=== PATIENT | female | born 1960 | race Caucasian/White ===

== ENCOUNTER 2019-08-14 00:47 | Day surgery (SDC) | payer OTHER, SELFPAY ==
[2019-08-11 14:44] VITALS: BMI 28.5
[2019-08-14] VITALS (9 sets, daily range): BP systolic 111–148; BP diastolic 64–86; PULSE 63–86; RESP 12–16; TEMP 36.1; O2SAT 94–100
[2019-08-14] MEDS: LACTATED RINGERS 1,000 ML 30 ML IV CONT (08:15)
--- NOTE | 2019-08-14 08:33 | WPDANESEPPF ---
Anes - Initial Pre Proc Eval Procedure: Operation Date: 08/14/19 10:00 Proposed Procedures p Trans Urethral Resection Bladder Tumor with Mitomycin C Instillation - Shady Ruiz MD Date/Time: 08/14/19 08:33 Surgeon: Shady Ruiz MD Pre Op Diagnosis: malignant neoplasm of bladder Patient Data Age: 59 Gender: F Height: 5 ft 3 in Weight: 71.1 kg Allergies Allergy/AdvReac Type Severity Reaction Status Date / Time No Known Allergies Allergy Unverified 08/14/19 08:00 Home Medications Medication Instructions Recorded Confirmed Type No Home Medications 08/11/19 08/14/19 History Patient hx anesthesia problems: none Family hx anesthesia problems: none [facility] Past Medical History Medical History Bladder cancer Anes - Eval Final PreProcedure Day of Procedure 08/14/19 08:33 Patient weight: overweight Heart: regular rate and rhythm Lungs: clear to auscultation Airway: Mallampati scale class II Neurological: alert and oriented Last oral intake: >/= 8 hours ASA classification: III Emergent: no Anesthetic plan: proceed Anesthesia type and monitoring: general LMA and standard monitoring Informed Consent: The patient's anesthetic plan and its attendant risks and benefits were discussed with the patient/family/POA. Questions were solicited and answers provided to the satisfaction of the patient/family/POA.
--- NOTE | 2019-08-14 09:39 | WPDHPUPDATE1 ---
History and Physical Update Update Date/Time: 08/14/19 09:39 History and Physical has been reviewed, including an updated exam of the patient. There are NO changes in the patient's condition. Risks, benefits, and alternatives have been discussed and questions answered. Patient agrees to proceed with procedure.
--- NOTE | 2019-08-14 09:40 | WPDHPUPDATE1 ---
History and Physical Update Update Date/Time: 08/14/19 09:40 History and Physical has been reviewed, including an updated exam of the patient. There are NO changes in the patient's condition. Risks, benefits, and alternatives have been discussed and questions answered. Patient agrees to proceed with procedure.
[2019-08-14] MEDS: ceFAZolin 2 GM/D5W 50 ML 2 GM/50 ML BAG IVPB (10:01)
--- NOTE | 2019-08-14 10:20 | PM.PROC ---
Procedure Note - Detailed Date of procedure: 08/14/19 Pre-op diagnosis: malignant neoplasm of bladder Post-op diagnosis: same Procedure performed: TURBT (medium, 4cm) Description of procedure: The patient was brought to the operative suite where she is prepped and draped in a routine sterile fashion while in the dorsal lithotomy position. This is done after the uneventful administration of systemic sedation. 2% Xylocaine jelly is introduced intraurethrally and allowed to stand for an appropriate period of time. A 24F resectoscope sheath was placed in the bladder and the bladder is circumferentially inspected carefully. 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 This area is resected in its entirety with an attempt made to include detrusor muscle for pathological evaluation of invasion. The base and periphery of this resected side is cauterized with a loop electrode. The bladder is emptied and the resectoscope was removed. The patient is taken to the recovery room having tolerated this procedure well. Anesthesia: GLMA Surgeon: Shady Ruiz MD Estimated blood loss (mL): 0 Drains: No Packing: No Pathology: yes Complications: No immediate complications Condition: stable Disposition: PACU
--- NOTE | 2019-08-14 10:21 | PM.PROC ---
Procedure Note - Detailed Date of procedure: 08/14/19 Pre-op diagnosis: malignant neoplasm of bladder Post-op diagnosis: same Procedure performed: Mitomycin instillation Description of procedure: With the patient in the supine position, a 16F West catheter is placed using sterile technique. Using a protective facemask, gown and double layer of gloves Mitomycin 40mg in 100cc saline is administered through the catheter/into the bladder. The catheter is then plugged. Patient was instructed to lie supine x20min, then to roll both the left and right x20 min. each. Total dwell time will be 60 min., after which the bladder will be drained and catheter removed. Anesthesia: none Surgeon: Shady Ruiz MD Estimated blood loss (mL): 0 Drains: No Packing: No Pathology: none sent Complications: No immediate complications Condition: stable Disposition: PACU
--- NOTE | 2019-08-14 10:53 | SUR.PHASEI ---
1053 - pt's family called and updated
--- NOTE | 2019-08-14 12:03 | SUR.PHASEI ---
1047 - pt turned every 20 minutes x 3. pt bora well. bladder drained and 150mls instilled. collier removed.
== END 2019-08-14 12:50 | disposition home or self-care (01) ==
PROVIDERS: PCP Internal Medicine; Visit Provider Urology
PROC: 0TBB8ZZ Excision of Bladder, Via Natural or Artificial Opening Endoscopic (ICD-10-PCS; CPT 51720; principal; 2019-08-14 10:00)
DX: C67.4 Malignant neoplasm of posterior wall of bladder (principal)
CPT/HCPCS: 51720; 52235; 88305; 88307; A9270; J0690; J1100; J2250; J2405; J2704; J3010; J7120; J9280

== ENCOUNTER 2020-01-29 14:54 | Outpatient (CLI) | payer BC, SELFPAY ==
--- NOTE | ~2020-01-29 | MM_ITS ---
EXAMINATION: MM screening velasquez BI w neymar HISTORY: Screening TECHNIQUE: Craniocaudal and mediolateral oblique 3-D tomosynthesis images were obtained and synthetic 2-D images were generated. CAD analysis was submitted and interpreted. COMPARISON: Comparison to multiple prior studies sequentially, with oldest reviewed study dated 08/30. BREAST PARENCHYMAL COMPOSITION: There are scattered areas of fibroglandular density. FINDINGS: There is no evidence of suspicious mass, calcification, or architectural distortion to sugg est malignancy in either breast. There has been no suspicious interval change. IMPRESSION: 1. No mammographic evidence of malignancy. 2. Recommend routine screening mammography in one year. BI-RADS Category 1: Negative Reviewed, dictated and finalized at location A.
== END 2020-01-29 14:55 | disposition home or self-care (01) ==
LOC: CHSIMG 14:56
PROVIDERS: PCP Internal Medicine; Visit Provider Internal Medicine
DX: Z12.31 Encounter for screening mammogram for malignant neoplasm of breast (principal)
CPT/HCPCS: 77063; 77067

== ENCOUNTER 2020-10-23 19:18 | Emergency (ER) | payer BC, SELFPAY ==
--- NOTE | ~2020-10-23 | CT_ITS ---
EXAMINATION: CT abdomen pelvis wo con EXAM DATE: 10/23/2020 19:55 INDICATION: Right flank pain for couple of weeks. Bladder tumors. TECHNIQUE: Spiral CT of the abdomen and pelvis was performed without contrast. Axial, coronal and sag ittal images were reviewed. The dose-length product (DLP) for this examination was 321.49 mGy-cm. T he exposure was tailored according to patient size (auto mA exposure control), and iterative reconstr uction (ASIR) was used as additional dose reduction technique. Comparison is made to prior examinatio n from 09/09/2015. FINDINGS: There are surgical changes of the bladder. There is severe right-sided hydroureteronephrosi s, probably indicating chronic low-grade obstruction. Left kidney unremarkable. The bladder is unrema rkable. Status post hysterectomy. The liver, spleen, adrenal glands and pancreas are unremarkable. G allbladder is unremarkable. No biliary obstruction. There is no retroperitoneal or pelvic lymphaden opathy. There is mild scattered arteriosclerotic disease. The appendix is not positively visualized. There is no pericecal inflammatory change to suggest appe ndicitis. There is mild sigmoid colonic diverticulosis. There is no adjacent inflammatory change to suggest diverticulitis. The stomach and small bowel are unremarkable. There is expected amount of colonic stool. No free intraperitoneal gas. The heart is normal in size. There are no pericardi al or pleural effusions. The lung bases are unremarkable. Chronic bilateral L5 spondylolysis with o nly a few millimeters anterolisthesis. IMPRESSION: 1. Severe right-sided hydroureteronephrosis to the UVJ, probably chronic. Bladder postoperative richter ges. No obstructing stones. 2. Mild sigmoid diverticulosis. Reviewed, dictated and finalized at location G. IMPRESSION: 1. Severe right-sided hydroureteronephrosis to the UVJ, probably chronic. Blad angelica postoperative changes. No obstructing stones. 2. Mild sigmoid diverticulosis.
[2020-10-23 19:25] VITALS: BP 143/83; PULSE 103; RESP 18; TEMP 36.8; O2SAT 98
[2020-10-23 19:51] LABS: Add Urine Microscopic? YES; Appearance Urine Clear (Clear); Bilirubin Urine Negative (Negative); Blood Urine 2+ (Negative); Color Urine Light Yellow (Yellow); Glucose Urine UA Negative (Negative); Ketones Urine 1+ (Negative); Leukocyte Esterase Ur Trace (Negative); Nitrate Urine Negative (Negative); Protein Urine Negative (Negative); Specific Grav Ur 1.025 (1.010-1.020); Urobilinogen Urine 0.2 mg/dL (0.2-1.0); pH Urine 5.5 (5.0-8.0)
[2020-10-23 20:06] LABS: Basophils Absolute Auto 0.04 K/mm3 (0.00-0.10); Basophils Percent Auto 0.3 % (0.0-1.0); Eosinophils Absolute Auto 0.09 K/mm3 (0.02-0.50); Eosinophils Percent Auto 0.7 % (1.0-6.0); Hematocrit 43.2 % (35.0-49.0); Hemoglobin 14.4 g/dL (12.0-15.0); Immature Granulocyte Absolute 0.11 K/mm3 (0.00-0.00); Immature Granulocyte Percent A 0.8 % (0.0-0.0); Lymphocytes Percent Auto 5.4 % (18.0-42.0); Mean Corpuscular HGB Conc 33.3 g/dL (32.0-36.0); Mean Corpuscular Hemoglobin 30.8 pg (27.0-31.0); Mean Corpuscular Volume 92.5 fL (78.0-102.0); Mean Platelet Volume 9.6 fl (9.2-11.8); Monocytes Absolute Auto 0.32 K/mm3 (0.10-0.90); Monocytes Percent Auto 2.5 % (2.0-11.0); Neutrophils Absolute Auto 11.8 K/mm3 (1.7-7.2); Neutrophils Percent Auto 90.3 % (50.0-70.0); Platelet Count Result 290 K/mm3 (150-420); Red Blood Count 4.67 M/mm3 (4.20-5.40); Red Cell Distribution Width 12.1 % (11.6-14.4)
[2020-10-23 20:09] LABS: Bacteria Urine None seen /hpf; Squamous Epithelial Cell Urine Few /hpf (Few); WBC Urine 0-3 /hpf (0-3)
[2020-10-23 20:27] LABS: Lactic Acid Reflex 1.2 mmol/L (0.4-2.0)
[2020-10-23 20:33] LABS: Alanine Aminotransferase 25 U/L (14-59); Albumin Level 3.4 g/dL (3.4-5.0); Alkaline Phosphatase 137 U/L (46-116); Anion Gap 10 mmol/L (8-16); Aspartate Amino Transferase 18 U/L (15-37); Bilirubin,Total 0.9 mg/dL (0.00-1.00); Blood Urea Nitrogen 20 mg/dL (7-18); Calcium 9.3 mg/dL (8.5-10.1); Carbon Dioxide 27 mmol/L (21-32); Chloride 103 mmol/L (98-108); Estimated CRCL calculation 61 ml/min; Estimated Glomerular Filt Rate > 60; Glucose 105 mg/dL (70-99); Osmolality Calculated 292 mOsm/kg (285-295); Potassium 3.9 mmol/L (3.5-5.1); Sodium 140 mmol/L (136-145); Total Protein 7.4 g/dL (6.4-8.2)
--- NOTE | 2020-10-23 20:38 | ED.FEMALEGU ---
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 MD elicited complaint: dysuria Pertinent past history: other ( history of bladder cancer) Onset (ago): day(s) Severity: mild Female Urogenital Radiation: Suprapubic Severity scale (1-10): 4 Quality of pain: dull Consistency: constant Vaginal discharge: none Vaginal bleeding: none Urinary symptoms: Dysuria Exacerbating factors: none Relieving factors: none Associated symptoms: chills Related Data Allergies Allergy/AdvReac Type Severity Reaction Status Date / Time No Known Allergies Allergy Unverified 08/14/19 08:00 Review of Systems Review of Systems: All systems reviewed & are unremarkable except as noted in HPI and below [facility] Past Medical History Medical History (Updated 10/23/20 @ 20:43 by Abhi Ro MD) Bladder cancer Exam Const: General: no acute distress Orientation/consciousness: patient oriented x3 HENMT: Head: normal to inspection Eyes: Conjunctivae: conjunctivae normal Pupils: Equal, round and reactive pupils present EOM: EOMs intact bilaterally Neck: Neck: normal visual inspection, no lymphadenopathy and no meningeal signs Chest: Chest palpation & inspection: normal inspection of the chest Resp: Effort & Inspection: normal respiratory effort Auscultation: clear to auscultation bilaterally Cardio: Rate: regular rate Rhythm: regular rhythm GI: GI Palp: Yes Soft to palpation Percussion: Yes normal to percussion : General: Yes no CVA tenderness Other: Suprapubic tender Urinary Catheter: Urinary Catheter: patent and draining Back/Spine/Pelvis: Back: no CVA tenderness Skin: General skin exam: normal color Rashes: no rashes Neuro: General: patient oriented x3, moves all extremities and no meningeal signs Extrem: General: normal to inspection Psych: Mental Status: mental status grossly normal Affect: normal affect Attitude: cooperative Course Course Emergency Course: patient resting comfortably reassessment of pain she declined any pain medicine, but will start ceftriaxone 1 g IM and will send antibiotics to her pharmacy and advised follow-up with urologist as soon as possible. Vital Signs Vital signs: Vital Signs Temperature 36.8 C 10/23/20 19:25 Pulse Rate 103 H 10/23/20 19:25 Respiratory Rate 18 10/23/20 19:25 Blood Pressure 143/83 H 10/23/20 19:25 Pulse Oximetry 98 10/23/20 19:25 Temperature 36.8 C 10/23/20 19:25 Pulse Rate 103 H 10/23/20 19:25 Respiratory Rate 18 10/23/20 19:25 Blood Pressure 143/83 H 10/23/20 19:25 Pulse Oximetry 98 10/23/20 19:25 MDM - Female Genitourinary Lab Data Result diagrams: 10/23/20 20:00 10/23/20 20:00 Labs: Lab Results 10/23/20 10/23/20 10/23/20 Range/Units 19:33 20:00 20:00 WBC 13.0 H (4.8-10.8) K/mm3 RBC 4.67 (4.20-5.40) M/mm3 Hgb 14.4 (12.0-15.0) g/dL Hct 43.2 (35.0-49.0) % MCV 92.5 (78.0-102.0) fL MCH 30.8 (27.0-31.0) pg MCHC 33.3 (32.0-36.0) g/dL RDW 12.1 (11.6-14.4) % Plt Count 290 (150-420) K/mm3 MPV 9.6 (9.2-11.8) fl Immature Gran % (Auto) 0.8 H (0.0-0.0) % Neut % (Auto) 90.3 H (50.0-70.0) % Lymph % (Auto) 5.4 L (18.0-42.0) % Person % (Auto) 2.5 (2.0-11.0) % Eos % (Auto) 0.7 L (1.0-6.0) % Baso % (Auto) 0.3 (0.0-1.0) % Lymph # (Auto) 0.70 L (1.10-4.50) K/mm3 Person # (Auto) 0.32 (0.10-0.90) K/mm3 Eos # (Auto)
[2020-10-23 20:42] VITALS: BP 143/83; PULSE 97; RESP 20; TEMP 37.1; O2SAT 97
[2020-10-23] MEDS: cefTRIAXone 1 GM VIAL IM (20:42)
== END 2020-10-23 21:05 | disposition home or self-care (01) ==
PROVIDERS: Emergency Provider Emergency Medicine; PCP Internal Medicine
DX: N30.00 Acute cystitis without hematuria (principal)
CPT/HCPCS: 36415; 74176; 80053; 81001; 83605; 85025; 96372; 99283; 99284; J0696

== ENCOUNTER 2020-11-04 01:14 | Day surgery (SDC) | payer BC, SELFPAY ==
[2020-10-29 14:27] VITALS: BMI 27.6
--- NOTE | 2020-11-01 08:38 | P.HP_ITS ---
History of Present Illness History of Present Illness Consent: Risks, benefits, and alternatives have been discussed and questions answered. Patient agrees to proceed with procedure. Chief complaint: bladder tumors Narrative: Jailene Ayon is a 60 year old female with a history of recurring urothelial neoplasm. recent surveillance cystoscopy revealed a area in question measuring approximately 1 cm in the right gricel trigone. After discussion of options she elected to proceed with cystoscopy with TURBT and biopsy. Will also plan retrograde pyelography to evaluate her upper urinary tracts. Review of Systems Cardiovascular: Cardiovascular: Denies chest pain, Denies lightheadedness, Denies palpitations and Denies dyspnea Respiratory: Respiratory: Denies dyspnea Gastrointestinal: Gastrointestinal: Denies diarrhea, Denies nausea and Denies vomiting Genitourinary: Genitourinary: Denies hematuria and Denies dysuria Endocrine: Endocrine: Denies palpitations [facility] Past Medical History Medical History (Updated 11/01/20 @ 08:40 by Shady Ruiz MD) Bladder cancer Social History Social History Smoking status: Never smoker Substance use: never Substance use type: does not use Gender identity (if verbalized by the patient): Female Spiritual care concerns: No Meds Home Medications and Allergies Home Medications Medication Instructions Recorded Confirmed Type No Home Medications 10/29/20 10/29/20 History Allergies Allergy/AdvReac Type Severity Reaction Status Date / Time No Known Allergies Allergy Unverified 10/29/20 14:49 Exam Const: General: no acute distress Resp: Effort & Inspection: normal respiratory effort GI: Inspection: non-distended GI Palp: No abdominal tenderness and No Guarding due to palpation present (GI) Auscultation: normal bowel sounds Assessment and Plan Assessment and plan (1) Cancer of posterior wall of urinary bladder: Code(s): C67.4 - Malignant neoplasm of posterior wall of bladder Status: Acute Assessment and Plan: * Cystoscopy, TURBT, bilateral retrograde pyelography and gemcitabine installation
[2020-11-04] VITALS (11 sets, daily range): BP systolic 127–164; BP diastolic 67–88; PULSE 58–78; RESP 10–20; TEMP 36.1; O2SAT 99–100; BMI 27.6
--- NOTE | ~2020-11-04 | XR_ITS ---
EXAMINATION: XR retrograde pyelogram BI EXAM DATE: 11/04/2020 10:13 INDICATION: Bilateral retrograde pyelogram. Severe right-sided hydroureteronephrosis. History of blad angelica tumors. TECHNIQUE: Fluoroscopy used during XR retrograde pyelogram BI performed by Dr. Shady Ruiz MD , urologist. The radiologist Arpit Perez M.D. dictating this report of the image(s) available was no t present for the procedure. Total fluoroscopic time of 87 seconds. The DAP for this procedure was 1349 radcm2. A total of 260 images sent to PACS from the exam. Cine run(s) available for review. FINDINGS: Left ureter was cannulated and injected, is unremarkable. The right ureter was then cannulated and injected and progressively distended, with evidence of mild to moderate right-sided superior moiety hydroureteronephrosis, but no fixed ureteral strictures, fill ing defects or other abnormality identified. Correlate with procedure note. Correlation was made with CT scan 10/23/2020. In retrospect, can identify 2 right ureters, uncertain wh ether or not they merge at the UVJ or have separate insertion sites at the bladder. Patient has dupl icated right renal collecting system and it is the superior moiety that was cannulated and injected o n this examination. It is the inferior moiety that had severe hydroureteronephrosis on recent CT scan . Inferior moiety was not opacified on today's procedure. IMPRESSION: 1. 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 Inf erior moiety and draining ureter not opacified. 2. Unremarkable left ureter. Reviewed, dictated and finalized at location B. IMPRESSION: 1. Duplicated right renal collecting system with mild to moderate superior moie ty hydronephrosis. Inferior moiety and draining ureter not opacified. 2. Unremarkable left ureter.
--- NOTE | 2020-11-04 06:01 | WPDHPUPDATE1 ---
History and Physical Update Update Date/Time: 11/04/20 06:01 History and Physical has been reviewed, including an updated exam of the patient. There are NO changes in the patient's condition. Risks, benefits, and alternatives have been discussed and questions answered. Patient agrees to proceed with procedure.
[2020-11-04] MEDS: LACTATED RINGERS 1,000 ML 30 ML IV CONT ×2 (07:42→10:15)
--- NOTE | 2020-11-04 07:58 | WPDANESEPPF ---
Anes - Initial Pre Proc Eval Procedure: Operation Date: 11/04/20 09:00 Proposed Procedures p Trans Urethral Resection Bladder Tumor - Shady Ruiz MD s Bilateral Retrograde Pyelogram with Gemcitabine Installation - Shady Ruiz MD Date/Time: 11/04/20 07:58 Surgeon: Shady Ruiz MD Pre Op Diagnosis: bladder tumors Patient Data Age: 60 Gender: F Height: 1.63 m Weight: 73 kg Last Vital Signs Temp 36.1 C L 11/04/20 07:43 Pulse 68 11/04/20 07:43 Resp 18 11/04/20 07:43 BP 139/81 11/04/20 07:43 Pulse Ox 100 11/04/20 07:43 Allergies Allergy/AdvReac Type Severity Reaction Status Date / Time No Known Allergies Allergy Verified 11/04/20 07:25 Home Medications Medication Instructions Recorded Confirmed Type No Home Medications 10/29/20 11/04/20 History Patient hx anesthesia problems: none Family hx anesthesia problems: none PMFSH Past Medical History Medical History Bladder cancer Surgical History Surgical History (Updated 11/04/20 @ 07:59 by Jhon Ceballos MD) Hx of cystoscopy Social History Social History Smoking status: Never smoker Substance use: never Substance use type: does not use Living arrangements: with family Gender identity (if verbalized by the patient): Female Sexual Orientation (if Verbalized by the Patient): Straight or Heterosexual Spiritual care concerns: No Anes - Eval Final PreProcedure Day of Procedure 11/04/20 07:58 Patient weight: overweight Heart: regular rate and rhythm Lungs: clear to auscultation Airway: Mallampati scale class II Neurological: alert and oriented Last oral intake: >/= 8 hours ASA classification: II Emergent: no Anesthetic plan: proceed Anesthesia type and monitoring: general LMA and standard monitoring Informed Consent: The patient's anesthetic plan and its attendant risks and benefits were discussed with the patient/family/POA. Questions were solicited and answers provided to the satisfaction of the patient/family/POA.
[2020-11-04] MEDS: ceFAZolin 2 GM/D5W 50 ML 2 GM/50 ML BAG IVPB (08:41)
[2020-11-04] MEDS: LIDOCAINE HCL 2% GEL UROJET 10 ML PKG MUCOUS MEM (08:57)
--- NOTE | 2020-11-04 09:29 | P.OP_ITS ---
Procedure Note - Detailed Date of Procedure 11/04/20 Pre-op Diagnosis Recurrent bladder tumor Post-op Diagnosis same Procedure Performed 1. Cystoscopy, bilateral retrograde pyelography 2. Right ureteroscopy 3. TURBT (Small, 1-2cm) Surgeon Shady Ruiz MD Engineer Byproduct None Anesthesia MAC Indications Recurrent bladder tumor Findings 1. Blunting of right calyces but normal uretero-renoscopy. 2. Probable 1-2cm bladder neoplasm right hemitrigone Description of Procedure Patient is brought to the operative suite where she was prepped draped in routine sterile fashion while in a dorsal lithotomy position. First placed a 19 F rigid cystoscope in her bladder. The bladder shows this area papillary change in the right gricel trigone, well away from the right ureteral orifice. This is l ikely consistent with recurrent urothelial neoplasm. Using an 8 F bulb tip catheter obtained bilateral retrograde pyelograms. The left pyelogram was normal without filling defects or obstruction. On the right there is blunting of her calices without obvious filling defects. I placed a 0.035 in glidewire in the right renal pelvis and dilated the distal ureter with an 8 F 10 F dilator. Ureteroscopy was undertaken with the 7.5 F flexible digital ureteral scope. The entire collecting system and ureter were carefully examined and were found to be no evidence of mucosal abnormalities, hyperemia and, certainly, no evidence of urothelial neoplasm the upper urinary tract. Then replaced the cystoscope for resectoscope and resected the area urothelial changes in the right gricel trigone. The base and periphery were cauterized. This was all done with care to avoid injury to the ureteral orifices. Cystoscope and resectoscope removed and a 16 F catheter was placed to drainage. Implants None Estimated Blood Loss 0 Drains Yes Packing No Complications No immediate complications Condition stable Disposition PACU
--- NOTE | 2020-11-04 09:33 | W.PM.PROC2 ---
Procedure Note - Detailed Date of Procedure 11/04/20 Pre-op Diagnosis Recurrent bladder tumors Post-op Diagnosis same Procedure Performed Gemcitabine bladder instillation Surgeon Shady Ruiz MD Lathe Operator Contact Lens None Anesthesia MAC Description of Procedure With the patient in the supine position, a 16F West catheter is placed using sterile technique. Using a protective facemask, gown and double layer of gloves Gemcitabine 2gm in 100cc saline is administered through the catheter/into the bladder. The catheter is then plugged. Patient was instructed to lie supine x20min, then to roll both the left and right x20 min. each. Total dwell time will be 60 min., after which the bladder will be drained and catheter removed. Estimated Blood Loss 0 Drains No Packing No Pathology none sent Complications No immediate complications Condition stable Disposition PACU
[2020-11-04] MEDS: SODIUM CHLORIDE 0.9% IV 23.7 ML, GEMCITABINE HCL 1,000 MG BLADDER ×2 (09:51→09:59)
[2020-11-04] MEDS: fentaNYL CITRATE INJ (*CRX) 100 MCG/2 ML VIAL 25 MCG IV PUSH ×3 (10:31→10:43)
[2020-11-04] MEDS: HYOSCYAMINE SULFATE 0.125 MG TABLET SUBLINGUAL (11:33)
[2020-11-04] MEDS: oxyCODONE HCL (*CRX) 5 MG TAB IR PO (11:49)
[2020-11-04] MEDS: KETOROLAC 30 MG/ML VIAL (*BKC) IV PUSH (12:15)
== END 2020-11-04 13:05 | disposition home or self-care (01) ==
PROVIDERS: PCP Internal Medicine; Visit Provider Urology
PROC: 0TBB8ZZ Excision of Bladder, Via Natural or Artificial Opening Endoscopic (ICD-10-PCS; CPT 52234; principal; 2020-11-04 09:00)
PROC: (CPT 52352; 2020-11-04 09:00)
DX: C67.0 Malignant neoplasm of trigone of bladder (principal)
CPT/HCPCS: 52234; 51720; 74420; 88305; A9270; C1758; C1769; C1887; J0131; J0690; J1100; J1885; J2250; J2405; J2704; J3010; J7120; J9201; Q9966

== ENCOUNTER 2021-07-04 14:13 | Outpatient (CLI) | payer BC, SELFPAY ==
--- NOTE | ~2021-07-04 | MM_ITS ---
EXAMINATION: MM screening [facility] BI w neymar HISTORY: Screening mammogram TECHNIQUE: Craniocaudal and mediolateral oblique 3-D tomosynthesis images were obtained and synthetic 2-D images were generated. CAD analysis was submitted and interpreted. COMPARISON: 01/29/2020, 08/14/2017 BREAST PARENCHYMAL COMPOSITION: There are scattered areas of fibroglandular density. FINDINGS: There is no evidence of suspicious mass, calcification, or architectural distortion to sugg est malignancy in either breast. There has been no suspicious interval change. IMPRESSION: 1. No mammographic evidence of malignancy. 2. Recommend routine screening mammography in one year. BI-RADS Category 1: Negative Reviewed, dictated and finalized at location A.
== END 2021-07-04 14:14 | disposition home or self-care (01) ==
LOC: CHSIMG 14:14
PROVIDERS: PCP Internal Medicine; Visit Provider Internal Medicine
DX: Z12.31 Encounter for screening mammogram for malignant neoplasm of breast (principal)
CPT/HCPCS: 77063; 77067

== ENCOUNTER 2021-07-07 03:10 | Day surgery (SDC) | payer BC, SELFPAY ==
[2021-06-29 10:23] VITALS: BMI 28.3
--- NOTE | 2021-06-29 10:34 | PC.NURSE ---
Report to the Outpatient Waiting Room, entrance under the green pavilion located off [facility], at time 0800 on date 07/07/21. OR Time: 1000. - You and your visitor will be asked a series of questions to screen for COVID 19 for your protection. - A mask is required within the hospital. One visitor will be allowed to accompany the patient into the hospital. Patients visitor will be instructed to remain with patient at all times or leave the building. We will allow the visitor to come back to the postoperative area when patient is ready. Preoperative COVID Testing Requirements: No COVID Test needed if: (proof is required; if not received patient will have Rapid Test prior to entry) - Patient has received COVID Vaccine at least 14 days prior to procedure date or - Patient has positive COVID test result within last 90 days of surgery date. COVID Test needed if above criteria is not met Patients may have clear liquids (water, carbonated beverages, clear teas, apple juice) until 3 hours prior to surgery with a maximum of 20 ounces. - No food from midnight until time of surgery Take the following medications with a SIP of water the morning of surgery: NONE Medications to discontinue per physician: N/A Date to take last dose: N/A Please no make-up, nail sammarinese, hairspray, perfume, deodorant, or body powder the day of surgery. No jewelry (including any body piercings) or valuables the day of surgery, leave them at home. Please take a shower or bath the night before, or the morning of, surgery with an antibacterial soap. Wear comfortable, loose fitting clothing. - Jewelry must be removed prior to entering the operating room. Rings and piercings that are not removed may be cut off. - The hospital will not accept responsibility for valuables. - Please leave all valuables, including medications, at home the day of surgery. If you are going home after surgery, a licensed electric screw driver operator must drive you home. - NO public transportation without another adult. - We recommend that an adult stay with you for 24 hours following discharge. - We also recommend that you do not drive, make important decision, drink alcoholic beverages, or take any drugs that were not prescribed by your health care provider for at least 24 hours after your discharge time. Follow any additional instructions given to you from your surgeon. Telephone instructions given to LAVINIA MELGAR and asked if any additional questions and then verbalized understanding. Patient advised to call surgeon office or pre surgery nurse liaison [phone] if any additional questions.
--- NOTE | 2021-07-04 07:48 | P.HP_ITS ---
History of Present Illness History of Present Illness Consent: Risks, benefits, and alternatives have been discussed and questions answered. Patient agrees to proceed with procedure. 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 She has undergone several prior TURBTs and has been on both induction and maintenance BCG. Most recent surveillance cystoscopy showed area of slight hyperemia in the posterior bladder wall. Urinary cytology was atypical but FISH was abnormal. After discussion of options she elects for cystoscopy with bladder biopsy/TURBT. She is aware of the risk including, but not limited to, injury to her bladder, hematuria and recurrent neoplasm. Review of Systems Cardiovascular: Cardiovascular: Denies chest pain, Denies lightheadedness, Denies palpitations and Denies dyspnea Respiratory: Respiratory: Denies dyspnea Gastrointestinal: Gastrointestinal: Denies diarrhea, Denies nausea and Denies vomiting Genitourinary: Genitourinary: Denies hematuria and Denies dysuria Endocrine: Endocrine: Denies palpitations [facility] Past Medical History Medical History Bladder cancer Surgical History Surgical History Hx of cystoscopy Social History Social History Smoking packs per day: 1 Smoking cigarettes per day: 20.0 Years smoked: 35 Smoking pack-years: 35.00 Smoking status: Former smoker Tobacco type: cigarettes Smoking end date: 04/23/07 Alcohol intake: current Drinks per week: 10 Substance use: never Substance use type: does not use Gender identity (if verbalized by the patient): Female Sexual Orientation (if Verbalized by the Patient): Straight or Heterosexual Spiritual care concerns: No Meds Home Medications and Allergies Home Medications Medication Instructions Recorded Confirmed Type No Home Medications 06/29/21 06/29/21 History Allergies Allergy/AdvReac Type Severity Reaction Status Date / Time No Known Allergies Allergy Verified 06/29/21 10:22 Exam Const: General: no acute distress Resp: Effort & Inspection: normal respiratory effort GI: Inspection: non-distended GI Palp: No abdominal tenderness and No Guarding due to palpation present (GI) Auscultation: normal bowel sounds Assessment and Plan Assessment and plan (1) Cancer of posterior wall of urinary bladder: Code(s): C67.4 - Malignant neoplasm of posterior wall of bladder Status: Acute Assessment and Plan: * Cystoscpy with bladder biopsy, possible TURBT.
--- NOTE | 2021-07-06 10:24 | WPDANESEPPF ---
Anes - Initial Pre Proc Eval Procedure: Operation Date: 07/07/21 08:30 Proposed Procedures p Cystoscopy, Bladder Biopsy, - Shady Ruiz MD s Possible Trans Urethral Resection Bladder Tumor - Shady Ruiz MD Date/Time: 07/06/21 10:24 Surgeon: Shady Ruiz MD Pre Op Diagnosis: hx of bladder CA Patient Data Age: 61 Gender: F Height: 1.6 m Weight: 72.57 kg Allergies Allergy/AdvReac Type Severity Reaction Status Date / Time No Known Allergies Allergy Verified 07/07/21 06:50 Home Medications Medication Instructions Recorded Confirmed Type No Home Medications 06/29/21 07/07/21 History Patient hx anesthesia problems: none Family hx anesthesia problems: none Results Review: All pre-operative results and documents have been reviewed as part of the pre-operative evaluation. [facility] Past Medical History Medical History (Updated 07/04/21 @ 07:50 by Shady Ruiz MD) Bladder cancer Surgical History Surgical History (Updated 07/06/21 @ 10:25 by John Meza DO) History of appendectomy History of hysterectomy History of nephrectomy Hx of cystoscopy Social History Social History Smoking packs per day: 1 Smoking cigarettes per day: 20.0 Years smoked: 35 Smoking pack-years: 35.00 Smoking status: Never smoker Tobacco type: cigarettes Smoking end date: 04/23/07 Alcohol intake: current Drinks per week: 10 Substance use: never Substance use type: does not use Living arrangements: with family Gender identity (if verbalized by the patient): Female Sexual Orientation (if Verbalized by the Patient): Straight or Heterosexual Spiritual care concerns: No Anes - Eval Final PreProcedure Day of Procedure 07/06/21 10:24 Patient weight: overweight Heart: regular rate and rhythm Lungs: clear to auscultation and normal air movement Airway: Mallampati scale class III Neurological: alert and oriented Last oral intake: >/= 8 hours ASA classification: III Emergent: no Anesthetic plan: proceed Anesthesia type and monitoring: general LMA and standard monitoring Results Review: All pre-operative results and documents have been reviewed as part of the pre-operative evaluation. Informed Consent: The patient's anesthetic plan and its attendant risks and benefits were discussed with the patient/family/POA. Questions were solicited and answers provided to the satisfaction of the patient/family/POA.
[2021-07-07] VITALS (7 sets, daily range): BP systolic 113–154; BP diastolic 80–91; PULSE 64–85; RESP 12–16; TEMP 36.1–36.5; O2SAT 97–100
--- NOTE | 2021-07-07 05:58 | ECG_ITS ---
Measurements Intervals [place] Rate: 74 P: 70 CA: 194 QRS: -5 QRSD: 73 T: 26 QT: 370 QTc: 412 Interpretive Statements SINUS RHYTHM NORMAL EKG NO CHANGE COMPARED TO PREVIOUS TRACING Electronically Signed On 07-07-2021 13:58:46 CDT by Barbara Redmond M.D.
--- NOTE | 2021-07-07 06:32 | WPDHPUPDATE1 ---
History and Physical Update Update Date/Time: 07/07/21 06:32 History and Physical has been reviewed, including an updated exam of the patient. There are NO changes in the patient's condition. Risks, benefits, and alternatives have been discussed and questions answered. Patient agrees to proceed with procedure.
[2021-07-07] MEDS: LACTATED RINGERS 1,000 ML 30 ML IV CONT (07:03)
[2021-07-07] MEDS: ceFAZolin 2 GM/D5W 50 ML 2 GM/50 ML BAG IVPB (08:01)
[2021-07-07] MEDS: LIDOCAINE HCL 2% GEL UROJET 10 ML PKG MUCOUS MEM (08:20)
--- NOTE | 2021-07-07 08:36 | W.PM.PROC2 ---
Procedure Note - Detailed Date of Procedure 07/07/21 Pre-op Diagnosis Hx of bladder CA Post-op Diagnosis Same Procedure Performed TURBT (medium, 3cm) Surgeon Shady Ruiz MD Anesthesia General Description of Procedure Patient is brought to the op suite process prepped draped in routine sterile fashion while in dorsal lithotomy position. 2% xylocaine jelly was introduced intraurethrally. Cystoscopy is undertaken with a 24 F resectoscope. Send area of subtle hyperemia without butch neoplasm in the right posterior lateral bladder wall. The remainder of the bladder mucosa on this occasion appears perfectly normal. Using the loop electrode I carefully resected this area. I did resect ureteral orifice but avoided cautery in that area. The remainder of the area was cauterized with a rollerball electrode. Resectoscope was removed she was taken recovery room in good condition. Estimated Blood Loss 0 Drains No Packing No Pathology Yes Complications No immediate complications Condition Stable Disposition PACU
[2021-07-07] MEDS: fentaNYL CITRATE INJ (*CRX) 100 MCG/2 ML VIAL 25 MCG IV PUSH ×2 (09:08→09:11)
== END 2021-07-07 10:02 | disposition home or self-care (01) ==
PROVIDERS: PCP Internal Medicine; Visit Provider Urology
PROC: 0TBB8ZX Excision of Bladder, Via Natural or Artificial Opening Endoscopic, Diagnostic (ICD-10-PCS; CPT 52204; principal; 2021-07-07 08:30)
PROC: 0TBB8ZZ Excision of Bladder, Via Natural or Artificial Opening Endoscopic (ICD-10-PCS; CPT 52235; 2021-07-07 08:30)
DX: N30.20 Other chronic cystitis without hematuria (principal); Z85.51 Personal history of malignant neoplasm of bladder; Z90.5 Acquired absence of kidney; Z87.891 Personal history of nicotine dependence
CPT/HCPCS: 52235; 88305; 93005; A9270; J0690; J2250; J3010; J7120

== ENCOUNTER 2022-08-09 13:44 | Outpatient (CLI) | payer BC, SELFPAY ==
--- NOTE | ~2022-08-09 | MM_ITS ---
EXAMINATION: MM screening [facility] BI w neymar HISTORY: Screening mammogram TECHNIQUE: Craniocaudal and mediolateral oblique 3-D tomosynthesis images were obtained and synthetic 2-D images were generated. CAD analysis was submitted and interpreted. COMPARISON: 07/04/2021, 01/29/2020, 08/14/2017 bilateral screening mammogram examinations BREAST PARENCHYMAL COMPOSITION: There are scattered areas of fibroglandular density. FINDINGS: There is no evidence of suspicious mass, calcification, or architectural distortion to sugg est malignancy in either breast. There has been no suspicious interval change. IMPRESSION: 1. No mammographic evidence of malignancy. 2. Recommend routine screening mammography in one year. BI-RADS Category 1: Negative Reviewed, dictated and finalized at location B.
== END 2022-08-09 13:45 | disposition home or self-care (01) ==
LOC: CHSIMG 13:45
PROVIDERS: PCP Internal Medicine; Visit Provider Internal Medicine
DX: Z12.31 Encounter for screening mammogram for malignant neoplasm of breast (principal)
CPT/HCPCS: 77063; 77067

== ENCOUNTER 2023-07-30 21:15 | Emergency (ER) | payer BC, SELFPAY ==
--- NOTE | ~2023-07-30 | CT_ITS ---
Non-contrast CT scan of the Abdomen and Pelvis Clinical indication: Hematuria Technique: 2.5 mm axial scans were obtained through the abdomen and pelvis without intravenous or or al contrast. Dose reduction technique was used on this scan by utilizing automated exposure control a nd iterative reconstruction technique. The dose-length product (DLP) was 427.17 mGy-cm. Findings: Images through the lung bases reveal no abnormalities. Left kidney appear unremarkable. No left renal or ureteral stone. No left hydronephrosis. There is du plication of the right renal collecting system. There is severe hydronephrosis of the lower pole moie ty. There is mild hydronephrosis of the upper pole moiety. No obstructing stone or mass clearly evide nt. The liver, spleen, pancreas, gallbladder, and adrenals appear normal. There is no aortic aneurysm. There is no evidence of bowel obstruction. Images through the pelvis were performed. There is no evidence of ascites or lymphadenopathy. Urinary bladder unremarkable. No pelvic mass seen. No ascites. 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 Based on prior reports, these findings are likely essential ly stable since October 2020. Reviewed, dictated and finalized at location . Impression: Duplicated right renal collecting system with severe hydronephrosis of the lowe r pole moiety and mild hydronephrosis of the upper pole moiety. Based on prior reports, these findings are likely essentially stable since October 2020.
[2023-07-30 21:18] VITALS: BP 154/94; PULSE 94; RESP 15; TEMP 36.6; O2SAT 98
[2023-07-31 00:34] VITALS: BP 133/88; PULSE 82; RESP 18; O2SAT 98
[2023-07-31 00:48] LABS: Appearance Urine Cloudy (Clear); Bilirubin Urine Negative (Negative); Blood Urine 3+ (Negative); Color Urine Yellow (Yellow); Glucose Urine UA Negative (Negative); Ketones Urine Negative (Negative); Leukocyte Esterase Ur 3+ LEU/UL (Negative); Nitrate Urine Negative (Negative); Non Pathogenic Casts 0-2; Protein Urine 2+ mg/dL (Negative); RBC Urine 21-50 /hpf (0-2); Specific Grav Ur 1.008 (1.001-1.035); Squamous Epithelial Cell Urine None Seen /hpf (Few); Urobilinogen Urine 0.2 mg/dL (<2.0); WBC Urine >100 /hpf (0-3); pH Urine 5.5 (5.0-9.0)
[2023-07-31 00:53] LABS: Basophils Percent Auto 0.4 % (0.2-1.2); Eosinophils Absolute Auto 0.2 K/mm3 (0-0.3); Hematocrit 41.3 % (37.0-47.0); Hemoglobin 13.5 g/dL (12.0-15.0); Immature Granulocyte Absolute 0.06 K/mm3 (0.00-0.031); Immature Granulocyte Percent A 0.7 % (0-0.5); Lymphocytes Absolute Auto 1.83 K/mm3 (0.9-3.2); Lymphocytes Percent Auto 20.1 % (18.3-44.2); Mean Corpuscular HGB Conc 32.7 g/dl (32-36); Mean Corpuscular Hemoglobin 30.8 pg (26-34); Mean Corpuscular Volume 94.1 fl (80-100); Mean Platelet Volume 9.9 fl (7.4-10.4); Monocytes Absolute Auto 0.8 K/mm3 (0.1-0.6); Monocytes Percent Auto 9.2 % (2.6-8.5); Neutrophils Absolute Auto 6.1 K/mm3 (1.3-6.7); Neutrophils Percent Auto 67.6 % (45.5-73.1); Platelet Count Result 315 k/mm3 (150-375); Red Blood Count 4.39 M/mm3 (4.2-5.4); White Blood Count 9.1 K/mm3 (4.5-10.0)
[2023-07-31 00:59] LABS: Bacteria Urine 1+ /hpf
[2023-07-31 01:00] LABS: Add Urine Microscopic? YES
[2023-07-31 01:06] LABS: Alanine Aminotransferase 19 U/L (6-35); Albumin Level 4.4 g/dL (3.5-5.1); Alkaline Phosphatase 103 U/L (38-126); Anion Gap 7 mmol/L (4-12); Aspartate Amino Transferase 25 U/L (14-36); Bilirubin,Total 0.7 mg/dL (0.2-1.3); Blood Urea Nitrogen 17 mg/dL (7-17); Carbon Dioxide 25 mmol/L (22-30); Chloride 104 mmol/L (98-107); Estimated CRCL calculation 62 ml/min; Estimated Glomerular Filt Rate > 60; Glucose 109 mg/dL (65-110); Potassium 4.3 mmol/L (3.4-5.0); Sodium 136 mmol/L (137-145)
[2023-07-31 01:08] LABS: Lactic Acid Reflex 0.8 mmol/L (0.7-2.0)
--- NOTE | 2023-07-31 02:36 | ED.GENADULT ---
HPI - General Adult General Chief complaint: Fever Stated complaint: fever, constipation, blood in urine Time Seen by Provider: 07/30/23 23:54 History of Present Illness HPI narrative: Patient is 63-year-old female presents emergency department chief complaint of fever, painful urination constipation. The patient reports she has taken multiple things from [id number] reports she has a history of bladder tumors reports she has had multiple surgeries on her bladder in the past. The patient reports that she has noticed her urine has been cloudy the patient reports that currently her temperature has come back down to normal. The patient denies vomiting reports that she has had some constipation as well. Related Data Allergies Allergy/AdvReac Type Severity Reaction Status Date / Time No Known Allergies Allergy Verified 07/30/23 21:21 Review of Systems Review of Systems: A 10 system review of systems was completed on the patient and is negative except for what is stated in the HPI. Nursing and ancillary documentation was reviewed. Exam Narrative: GENERAL: Well-appearing, well-nourished, and in no acute distress. HEAD: Normocephalic, atraumatic. EYES: PERRLA and EOMI. ENT: Nares clear, no rhinorrhea or epistaxis. Mucous membranes moist. NECK: Supple. CHEST: Clear to auscultation. No respiratory distress. HEART: Regular rate and rhythm. No murmur heard. Normal peripheral pulses. ABDOMEN: Soft, nontender, nondistended, normal active bowel sounds. EXTREMITIES: Normal range of motion. No edema. SKIN: Warm, dry, no rash. NEURO: No focal deficits. Alert and oriented x3. PSYCH: Normal mood and affect. Course Vital Signs Vital signs: Vital Signs Temperature 36.6 C 07/30/23 21:18 Pulse Rate 94 07/30/23 21:18 Respiratory Rate 15 07/30/23 21:18 Blood Pressure 154/94 H 07/30/23 21:18 Pulse Oximetry 98 07/30/23 21:18 Oxygen Delivery Room Air 07/30/23 21:18 Temperature 36.6 C 07/30/23 21:18 Pulse Rate 76 07/31/23 03:38 Respiratory Rate 18 07/31/23 03:38 Blood Pressure 137/82 07/31/23 03:38 Pulse Oximetry 99 07/31/23 03:38 Oxygen Delivery Room Air 07/30/23 21:18 Medical Decision Making [facility] Narrative Medical decision making narrative: Differential diagnosis includes ureterolithiasis, pyelonephritis, bowel obstruction, constipation, Laboratory studies were obtained patient showed normal CBC normal CMP creatinine was 0.8 urinalysis showed greater than 100 white blood cells in the urine 3+ leukocyte esterase 1+ bacteria CT scan of the abdomen pelvis showed no evidence of obstructing stone there was evidence of a duplicated renal collecting system on the right with mild hydronephrosis of the upper pole of the kidney and marked hydronephrosis of the lower pole. There is no obstructing stones. Case was discussed with Urology on-call the patient is given a dose of Rocephin will be discharged home on Keflex. Vital Signs Vital Signs: Vital Signs Temperature 36.6 C 07/30/23 21:18 Pulse Rate 94 07/30/23 21:18 Respiratory Rate 15 07/30/23 21:18 Blood Pressure 154/94 H 07/30/23 21:18 Pulse Oximetry 98 07/30/23 21:18 Oxygen Delivery Room Air 07/30/23 21:18 Temperature 36.6 C 07/30/23 21:18 Pulse Rate 76 07/31/23 03:38 Respiratory Rate 18 07/31/23 03:38 Blood Pressure 137/82 07/31/23 03:38 Pulse Oximetry 99 07/31/23 03:38 Oxygen Delivery Room Air 07/30/23 21:18 Lab Data 07/31/23 00:46 07/31/23 00:46 Labs: Lab Results 07/31/23 07/31/23 Range/Units 00:36 00:46 WBC 9.1 (4.5-10.0) K/mm3 RBC 4.39 (4.2-5.4) M/mm3 Hgb 13.5 (12.0-15.0) g/dL Hct 41.3 (37.0-47.0) % MCV 94.1 (80-100) fl MCH 30.8 (26-34) pg MCHC 32.7 (32-36) g/dl RDW 12.0 (11.5-14.5) % Plt Count 315 (150-375) k/mm3 MPV 9.9 (7.4-10.4) fl Immature Gran % (Auto) 0.7 H (0-0.5) % Neut %
[2023-07-31 03:38] VITALS: BP 137/82; PULSE 76; RESP 18; O2SAT 99
== END 2023-07-31 03:42 | disposition home or self-care (01) ==
PROVIDERS: Emergency Provider Emergency Medicine
DX: N39.0 Urinary tract infection, site not specified (principal)
CPT/HCPCS: 36415; 74176; 80053; 81001; 83605; 85025; 87086; 96365; 99284; J0696

== ENCOUNTER 2023-08-14 14:49 | Outpatient (CLI) | payer BC, SELFPAY ==
--- NOTE | ~2023-08-14 | MM_ITS ---
EXAMINATION: MM screening [facility] BI w neymar HISTORY: Screening mammogram TECHNIQUE: Craniocaudal and mediolateral oblique 3-D tomosynthesis images were obtained and synthetic 2-D images were generated. CAD analysis was submitted and interpreted. COMPARISON: 08/09/2022, 06/2405/26/2021 bilateral screening mammogram examinations BREAST PARENCHYMAL COMPOSITION: There are scattered areas of fibroglandular density. FINDINGS: There is no evidence of suspicious mass, calcification, or architectural distortion to sugg est malignancy in either breast. There has been no suspicious interval change. IMPRESSION: 1. No mammographic evidence of malignancy. 2. Recommend routine screening mammography in one year. BI-RADS Category 1: Negative Reviewed, dictated and finalized at location A.
== END 2023-08-14 14:50 | disposition home or self-care (01) ==
LOC: CHSIMG 14:52
PROVIDERS: PCP Internal Medicine; Visit Provider Internal Medicine
DX: Z12.31 Encounter for screening mammogram for malignant neoplasm of breast (principal)
CPT/HCPCS: 77063; 77067

== ENCOUNTER 2023-11-05 09:31 | Outpatient (CLI) | payer BC, SELFPAY ==
--- NOTE | 2023-11-05 09:41 | ECG_ITS ---
Test Date: 2023-11-05 09:54:50 Measurements Intervals [place] Rate: 66 P: 64 ID: 189 QRS: 0 QRSD: 77 T: 25 QT: 377 QTc: 396 Interpretive Statements SINUS RHYTHM RSR' IN V1 OR V2, RIGHT VCD OR RVH BASELINE ARTIFACT- I, II, III, AVR, AVL, AVF BORDERLINE ECG No previous ECG available for comparison Electronically Signed On 11-05-2023 10:07:28 CDT by Braulio Valverde D.O.
== END 2023-11-05 09:32 | disposition home or self-care (01) ==
LOC: ANHSURGERY 09:34
PROVIDERS: PCP Internal Medicine; Visit Provider Urology
DX: Z01.818 Encounter for other preprocedural examination (principal); F17.210 Nicotine dependence, cigarettes, uncomplicated
CPT/HCPCS: 93005

== ENCOUNTER 2023-11-08 01:29 | Day surgery (SDC) | payer BC, SELFPAY ==
[2023-11-01 13:44] VITALS: BMI 28.3
--- NOTE | 2023-11-01 13:51 | PC.NURSE ---
Report to the Outpatient Waiting Room, entrance under the green pavilion located off [facility], at time _0630_ on date _[id number]_. Planned Procedure Time: _0830_. Time changes happen often and if your time is changed the preop area will call you the afternoon before. - You and your visitor will be asked to self-screen and do not enter if you have any COVID symptoms. - A mask is optional within the hospital at this time. Patients may have clear liquids (water, carbonated beverages, clear teas, apple juice) until 3 hours prior to surgery with a maximum of 20 ounces. - No food from midnight until time of surgery Take the following medications with a SIP of water the morning of surgery: ___None DO NOT STOP ANY OF YOUR OTHER PRESCRIPTION MEDICATIONS PRIOR TO SURGERY ?EXCEPT THE FOLLOWING Medications to discontinue per physician None Date to take last dose Please no make-up, nail ukrainian, hairspray, perfume, deodorant, or body powder the day of surgery. No jewelry (including any body piercings) or valuables the day of surgery, leave them at home. Please take a shower or bath the night before, or the morning of, surgery with an antibacterial soap. Wear comfortable, loose fitting clothing. - Jewelry must be removed prior to entering the operating room. Rings and piercings that are not removed may be cut off. - The hospital will not accept responsibility for valuables. - Please leave all valuables, including medications, at home the day of surgery. If you are going home after surgery, a licensed charter and tour bus driver must drive you home. - NO public transportation without another adult if you receive anesthesia. - We recommend that an adult stay with you for 24 hours following discharge. - We also recommend that you do not drive, make important decision, drink alcoholic beverages, or take any drugs that were not prescribed by your health care provider for at least 24 hours after your discharge time. Follow any additional instructions given to you from your surgeon. If you or anyone in your household have experienced Covid symptoms in the past week, please notify your surgeon or the nurse liaison at the phone number below for possible testing. Telephone instructions given to __Kim__and asked if any additional questions and then verbalized understanding. Patient advised to call surgeon office or pre surgery nurse liaison [phone] if any additional questions.
[2023-11-08] VITALS (12 sets, daily range): BP systolic 122–170; BP diastolic 65–95; PULSE 62–86; RESP 10–20; TEMP 36.5–36.6; O2SAT 95–100; BMI 27.5
--- NOTE | 2023-11-08 06:29 | WPDHPUPDATE1 ---
History and Physical Update Update Date/Time: 11/08/23 06:29 History and Physical has been reviewed, including an updated exam of the patient. There are NO changes in the patient's condition. Risks, benefits, and alternatives have been discussed and questions answered. Patient agrees to proceed with procedure.
[2023-11-08] MEDS: LACTATED RINGERS 1,000 ML 30 ML IV CONT (07:00)
--- NOTE | 2023-11-08 07:57 | P.PNAN_ITS ---
Anes - Initial Pre Proc Eval Procedure: Operation Date: 11/08/23 08:30 Proposed Procedures p Trans Urethral Resection Bladder Tumor with Gemcitabine Instillation - Shady Ruiz MD Date/Time: 11/08/23 07:57 Surgeon: Shady Ruiz MD Pre Op Diagnosis: Hx of Bladder Ca Patient Data Age: 63 Gender: F Height: 1.6 m Weight: 70.5 kg Last Vital Signs Temp 97.8 F 11/08/23 06:35 Pulse 76 11/08/23 06:35 Resp 14 11/08/23 06:35 BP 150/82 H 11/08/23 06:35 Pulse Ox 100 11/08/23 06:35 O2 Del Method Room Air 11/08/23 06:35 Allergies Allergy/AdvReac Type Severity Reaction Status Date / Time No Known Allergies Allergy Verified 11/08/23 07:20 Home Medications Medication Instructions Recorded Confirmed Type No Home Medications 11/01/23 11/01/23 History Patient hx anesthesia problems: none Family hx anesthesia problems: none Results Review: All pre-operative results and documents have been reviewed as part of the pre- operative evaluation. [facility] Past Medical History Medical History Bladder cancer Surgical History Surgical History History of appendectomy History of hysterectomy History of nephrectomy Hx of cystoscopy Social History Social History Smoking packs per day: 1 Smoking cigarettes per day: 20.0 Years smoked: 35 Smoking pack-years: 35.00 Smoking status: Former smoker Tobacco type: cigarettes Smoking end date: 11/01/11 Alcohol intake: current Drinks per week: 7 Substance use: never Substance use type: does not use Living arrangements: with family Gender identity (if verbalized by the patient): Female Sexual Orientation (if Verbalized by the Patient): Straight or Heterosexual Spiritual care concerns: No Anes - Eval Final PreProcedure Day of Procedure 11/08/23 07:57 Patient weight: overweight Heart: regular rate and rhythm Lungs: clear to auscultation Airway: Mallampati scale class II Neurological: alert and oriented Last oral intake: >/= 8 hours ASA classification: III Emergent: no Anesthetic plan: proceed Anesthesia type and monitoring: general LMA and standard monitoring Results Review: All pre-operative results and documents have been reviewed as part of the pre- operative evaluation. Ex smoker, quit approx 2013, hx of bladder ca. Informed Consent: The patient's anesthetic plan and its attendant risks and benefits were discussed with the patient/family/POA. Questions were solicited and answers provided to the satisfaction of the patient/family/POA.
[2023-11-08] MEDS: ceFAZolin 2 GM/D5W 50 ML 2 GM/50 ML BAG IVPB (08:04)
[2023-11-08] MEDS: LIDOCAINE HCL 2% GEL UROJET 10 ML PKG MUCOUS MEM (08:28)
[2023-11-08] MEDS: SODIUM CHLORIDE 0.9% IV 23.7 ML, GEMCITABINE HCL 1,000 MG BLADDER ×2 (08:39→08:41)
--- NOTE | 2023-11-08 08:51 | W.PM.PROC2 ---
Procedure Note - Detailed Date of Procedure 11/08/23 Pre-op Diagnosis Hx of Bladder Ca Post-op Diagnosis Same Procedure Performed TURBT (small, 1cm) Surgeon Shady Ruiz MD Anesthesia General Description of Procedure Patient is brought to the operative suite where she has prepped draped in routine sterile fashion while in dorsal lithotomy position after the uneventful induction a general anesthetic 4 F resectoscope was placed in her bladder. The bladder was very carefully inspected. As usual, she has this unusual septation runs down the middle of her bladder. Bladder mucosa is very carefully inspected. There was just area very subtle papillary changes in the posterior lateral bladder wall near the bladder neck at the. Resected this in its entirety with an attempt made include detrusor muscle for pathological invasion. Base and periphery was cauterized. Resectoscope was removed. Estimated Blood Loss 0 Drains Yes Packing Yes Pathology Yes Complications No immediate complications Condition Stable Disposition PACU
--- NOTE | 2023-11-08 08:54 | W.PM.PROC2 ---
Procedure Note - Detailed Date of Procedure 11/08/23 Pre-op Diagnosis Hx of Bladder Ca Post-op Diagnosis Same Procedure Performed Gemcitabine instillation Surgeon Shady Ruiz MD Anesthesia General and None Description of Procedure With the patient in the supine position, a 16F [place] catheter is placed using sterile technique. Using a protective facemask, gown and double layer of gloves Gemcitabine 2gm in 100cc saline is administered through the catheter/into the bladder. The catheter is then plugged. Patient was instructed to lie supine x20min, then to roll both the left and right x20 min. each. Total dwell time will be 60 min., after which the bladder will be drained and catheter removed. Estimated Blood Loss 0 Drains Yes
[2023-11-08] MEDS: fentaNYL CITRATE INJ (*CRX) 100 MCG/2 ML VIAL 25 MCG IV PUSH ×2 (09:09→09:28)
[2023-11-08] MEDS: SODIUM CHLORIDE 0.9% IV 50 ML BAG 150 ML IRRIGATION (09:58)
[2023-11-08] MEDS: oxyCODONE HCL (*CRX) 5 MG TAB IR PO (10:45)
== END 2023-11-08 11:06 | disposition home or self-care (01) ==
PROVIDERS: PCP Internal Medicine; Visit Provider Urology
PROC: 0TBB8ZZ Excision of Bladder, Via Natural or Artificial Opening Endoscopic (ICD-10-PCS; CPT 52234; principal; 2023-11-08 08:30)
DX: C67.8 Malignant neoplasm of overlapping sites of bladder (principal)
CPT/HCPCS: 52234; 51720; 88305; A9270; J0690; J2405; J2704; J3010; J7120; J9201

== ENCOUNTER 2023-12-24 09:30 | Emergency (ER) | payer BC, SELFPAY ==
[2023-12-24 09:30] VITALS: BP 168/94; PULSE 78; RESP 18; TEMP 36.3; O2SAT 98
--- NOTE | 2023-12-24 09:51 | ED.LOWEXIN ---
HPI - Extremity Injury (Lower) General Chief Complaint: Extremity Injury, Lower Stated Complaint: ankle pain Source: patient Mode of arrival: ambulatory Limitations: no limitations History of Present Illness HPI Narrative: 63-year-old female with a history of bladder cancer with ongoing fulguration of the bladder tumor presents to the ED with a 3 day history of -- right lower leg/ medial malleolar cutaneous swelling. No bite chan or skin break. No trauma -- right ankle and right lower leg pain. Onset (ago): day(s) ( Three days) Severity: mild Relieving factors: nothing Exacerbating factors: nothing Related Data Home Medications Medication Instructions Recorded Confirmed No Home Medications 12/24/23 12/24/23 Allergies Allergy/AdvReac Type Severity Reaction Status Date / Time No Known Allergies Allergy Verified 12/24/23 09:58 Review of Systems Constitutional: Constitutional: Reports as per HPI and Reports no additional constitutional complaints Eyes: Eyes: Reports as per HPI and Reports no additional eye complaints ENT: Reports system reviewed and no additional complaints, except as documented and Reports as per HPI Cardiovascular: Cardiovascular: Reports as per HPI and Reports no additional cardiovascular complaints Respiratory: Respiratory: Reports as per HPI and Reports no additional respiratory complaints Gastrointestinal: Gastrointestinal: Reports as per HPI and Reports no additional gastrointestinal complaints Genitourinary: Comments: intermittent bladder spasms Musculoskeletal: Musculoskeletal: Reports no additional musculoskeletal complaints Comments: right ankle/ foot pain Integumentary/Breasts: Skin/Breast: Reports system reviewed and no additional complaints, except as docu and Reports as per HPI Neurologic: Reports system reviewed and no additional complaints, except as documented and Reports as per HPI Psychiatric: Psychiatric: Reports no additional psychiatric complaints and Reports as per HPI Endocrine: Endocrine: Reports no additional endocrine complaints and Reports as per HPI Hematologic/Lymphatic: Hematologic/Lymphatic: Reports no additional hematologic/lymphatic complaints and Reports as per HPI Allergic/Immunologic: Allergic/Immunologic: Reports no additional allergic/immunologic complaints and Reports as per HPI PMFSH Past Medical History Medical History Bladder cancer Surgical History Surgical History History of appendectomy History of hysterectomy History of nephrectomy Hx of cystoscopy Social History Social History Smoking packs per day: 1 Smoking cigarettes per day: 20.0 Years smoked: 35 Smoking pack-years: 35.00 Smoking status: Former smoker Tobacco type: cigarettes Smoking end date: 11/01/11 Alcohol intake: current Drinks per week: 7 Substance use: never Substance use type: does not use Living arrangements: with family Gender identity (if verbalized by the patient): Female Sexual Orientation (if Verbalized by the Patient): Straight or Heterosexual Spiritual care concerns: No Exam Narrative: blood pressure is 168/94 Const: General: healthy appearing and no acute distress Orientation/consciousness: patient oriented x3 Limitations: no limitations HENMT: Head: normal to inspection Ears: external ears normal Face/Nose/Sinus: Normal external nose present Face and sinus: normal facial exam Mouth: Yes Normal oral and palatal mucosa present Throat: posterior oropharynx normal Eyes: Conjunctivae: conjunctivae normal Pupils: Equal, round and reactive pupils present EOM: EOMs intact bilaterally Direct Ophthalmoscopy: no photophobia Neck: Neck: normal visual inspection, no lymphadenopathy and no meningeal signs Chest: Chest palpation & ins
[2023-12-24 10:23] LABS: Basophils Absolute Auto 0.04 K/mm3 (0.00-0.10); Basophils Percent Auto 0.5 % (0.0-1.0); Eosinophils Percent Auto 3.7 % (1.0-6.0); Hematocrit 41.3 % (35.0-49.0); Hemoglobin 13.7 g/dL (12.0-15.0); Immature Granulocyte Absolute 0.05 K/mm3 (0.00-0.00); Immature Granulocyte Percent A 0.6 % (0.0-0.0); Lymphocytes Absolute Auto 1.46 K/mm3 (1.10-4.50); Lymphocytes Percent Auto 17.8 % (18.0-42.0); Mean Corpuscular HGB Conc 33.2 g/dL (32-36); Mean Corpuscular Hemoglobin 30.9 pg (27.0-31.0); Mean Corpuscular Volume 93.2 fL (78.0-102.0); Mean Platelet Volume 9.1 fl (9.2-11.8); Monocytes Absolute Auto 0.53 K/mm3 (0.10-0.90); Monocytes Percent Auto 6.5 % (2.0-11.0); Neutrophils Absolute Auto 5.81 K/mm3 (1.70-7.20); Neutrophils Percent Auto 70.9 % (50.0-70.0); Platelet Count Result 333 K/mm3 (150-420); Red Blood Count 4.43 M/mm3 (4.20-5.40); Red Cell Distribution Width 12.1 % (11.6-14.4); White Blood Count 8.2 K/mm3 (4.8-10.8)
[2023-12-24 10:38] LABS: Alanine Aminotransferase 20 U/L (14-59); Albumin Level 3.2 g/dL (3.4-5.0); Alkaline Phosphatase 125 U/L (46-116); Anion Gap 8 mmol/L (4-12); Aspartate Amino Transferase 18 U/L (15-37); Bilirubin,Total 0.4 mg/dL (0.00-1.00); Blood Urea Nitrogen 13 mg/dL (7-18); Calcium 9.2 mg/dL (8.5-10.1); Carbon Dioxide 28 mmol/L (21-32); Chloride 100 mmol/L (98-108); Estimated CRCL calculation 65 ml/min; Estimated Glomerular Filt Rate > 60; Glucose 98 mg/dL (70-99); Osmolality Calculated 282 mOsm/kg (285-295); Potassium 3.8 mmol/L (3.5-5.1); Sodium 136 mmol/L (136-145); Total Protein 6.8 g/dL (6.4-8.2)
[2023-12-24 10:41] LABS: D Dimer 0.93 mg/L (0.19-0.50)
[2023-12-24 10:43] LABS: Lactic Acid Reflex 1.1 mmol/L (0.4-2.0)
[2023-12-24 10:50] LABS: Uric Acid 3.6 mg/dL (2.6-6.0)
[2023-12-24 11:24] VITALS: BP 155/88; PULSE 80; RESP 20; TEMP 36.6; O2SAT 98
== END 2023-12-24 11:26 | disposition home or self-care (01) ==
PROVIDERS: Emergency Provider Internal Medicine Critical Care Medicine; PCP Internal Medicine
DX: M79.604 Pain in right leg (principal); Z87.891 Personal history of nicotine dependence
CPT/HCPCS: 36415; 80053; 83605; 84550; 85025; 85380; 99283

== ENCOUNTER 2023-12-25 08:55 | Outpatient (CLI) | payer BC, SELFPAY ==
--- NOTE | ~2023-12-25 | US_ITS ---
EXAMINATION: US venous doppler LE RT DATE: 12/25/2023 09:26 INDICATION: Right lower limb pain TECHNIQUE: Grayscale ultrasound images without and with compression and Doppler ultrasound images of the right lower extremity veins were obtained. COMPARISON: None. FINDINGS: The visualized portions of right common femoral vein, profunda (deep) femoral vein, femoral vein, pop liteal vein, posterior tibial veins, peroneal veins, gastrocnemius vein and greater saphenous vein ou tflow are patent. IMPRESSION: 1. No deep venous thrombosis in the right lower limb. Reviewed, dictated and finalized at location A.
== END 2023-12-25 08:56 | disposition home or self-care (01) ==
PROVIDERS: PCP Internal Medicine; Visit Provider Internal Medicine Critical Care Medicine
DX: M79.89 Other specified soft tissue disorders (principal)
CPT/HCPCS: 73610; 73630; 93971

== ENCOUNTER 2024-06-11 11:51 | Outpatient (CLI) | payer BC, SELFPAY ==
--- OUTSIDE RECORDS SUMMARY | 2024-06-11 11:56 | XMS_ITS | Clinical Summary ---
Author Organization [facility] [employer] Address [address] [place] [address] Care Team Providers Care Water Plumber Name Role Phone Jd Ramos MD Primary Care Provider [phone] Source Comments [facility],non-owned Affiliates and Associated Physician Practices is amultiple site organization consisting of ambulatory clinics and hospital sitesin [place], [place], [place] and [place]. This disclosure is being madepursuant to the Care Everywhere program and may not contain all information available regarding this patient. Last updated 18.[facility] [employer] Social History Tobacco Use Types Packs/Day Years Used Date Smoking Tobacco: Never Assessed Sex and Gender Information Value Date Recorded Sex Assigned at Not on file Gender Identity Not on file Sexual Orientation Not on file Plan of Treatment Health Maintenance Due Date Last Done Comments COLOGUARD (AGES 45-75) - COL ON CA SCREENING 1962 COLON MONITORING 1962 COLONOSCOPY - COLON CA SCREENING 1962 CT COLONOGRAPHY - COLON CA SCREENING 1962 Colorectal Cancer Screening 1962 FIT - COLON CA SCREENING 1962 FLEX SIG - COLON CA SCREENING 1962 LIPID TESTING 1962 MAMMOGRAM 1962 PAP SMEAR 1962 HIV SCREENING 1977 HEPATITIS C SCREENING 04/10/1980 DTAP/TDAP/TD VACCINES (1 - Tdap) 1981 PNEUMOCOCCAL VACCINE 50+ (1 of 1 - PCV) 2012 ZOSTER VACCINE (1 of 2) 2012 COVID-19 VACCINE (1 - 2023-2 5 season) 2023 INFLUENZA VACCINE (#1) 2023 DEPRESSION SCREENING 04/23/2024 Respiratory Syncytial Virus (RSV) Vaccine Pt: or over 60 yrs (1 - 1-dose 75+ series) 2037 HEPATITIS B VACCINE Aged Out No longe r eligible based on patient's age to complete this topic HIB VACCINE Aged Out No longer eligi ble based on patient's age to complete this topic HPV VACCINE Aged Out No longer eligi ble based on patient's age to complete this topic MENINGOCOCCAL (Group B) VACCINE Aged Out No longer eligible based on patient's age to complete this topic MENINGOCOCCAL VACCINE Aged Out No cj jono eligible based on patient's age to complete this topic PNEUMOCOCCAL VACCINE Aged Out No long er eligible based on patient's age to complete this topic Care Teams Water Plumber Relationship Specialty Start Date End Date Jd Ramos MD NPI: [id number] [place] [id number] PCP - General 07/11/21
--- OUTSIDE RECORDS SUMMARY | 2024-06-11 11:56 | XMS_ITS | Referral Summary ---
Author Organization [facility] Address [address] [place] [place] [address] Care Team Providers Care Fountain Brush Assembler Name Role Phone Jd Ramos MD Primary Care Provider [phone] Source Comments [facility],non-owned Affiliates and Associated Physician Practices is amultiple site organization consisting of ambulatory clinics and hospital sitesin [place], [place] and [place]. This disclosure is being madepursuant to the Care Everywhere program and may not contain all information available regarding this patient. Last updated 18.[facility] [employer] Social History Tobacco Use Types Packs/Day Years Used Date Smoking Tobacco: Never Assessed Sex and Gender Information Value Date Recorded Sex Assigned at Not on file Gender Identity Not on file Sexual Orientation Not on file Plan of Treatment Not on file Care Teams Fountain Brush Assembler Relationship Specialty Start Date End Date Jd Ramos MD [address] [place] [address] PCP - General 07/11/21
--- OUTSIDE RECORDS SUMMARY | 2024-06-11 11:56 | XMS_ITS | Patient Health Summary ---
Author Organization [facility] [employer] Address [address] [place] [address] Care Team Providers Care Hat Finishing Materials Preparer Name Role Phone Jd Ramos MD Primary Care Provider [phone] Note from [facility],non-owned Affiliates and Associated Physician Practices is amultiple site organization consisting of ambulatory clinics and hospital sitesin [place], [place], [place] and [place]. This disclosure is being madepursuant to the Care Everywhere program and may not contain all information available regarding this patient. Last updated 18.[facility] Social History Tobacco Use Types Packs/Day Years Used Date Smoking Tobacco: Never Assessed Sex and Gender Information Value Date Recorded Sex Assigned at Not on file Gender Identity Not on file Sexual Orientation Not on file Procedures * PATH CONSULT ON REFERRED CASE(Performed 05/30/2021) Performed for Illness, unspecified * PATH CONSULT ON REFERRED CASE(Performed 02/18/2020) Performed for Illness, unspecified Results * PATH CONSULT ON REFERRED CASE (05/30/2021 11:14 AM DRIVER SALES) Only the most recent of2 resultswithin the time period is included. Final Diagnosis URINE, VOIDED, THIN PREP, CYTOLOGY (OSC: [id number]; 05/30/2021): - Atypical urothelial cells (AUS) 06/02/2021 9:55 AM DRIVER SALES [facility] Microscopic Description and Comment Performed. 06/02/2021 9:55 AM DRIVER SALES [facility] Clinical History HISTORY OF BLADDER CANCER 06/02/2021 9:55 AM [facility] Materials Received Prepared slide received from [facility] [place] [facility] [id number]. All material will be returned. 06/02/2021 9:55 AM [facility] Disclaimer The performance characteristics of all immunohistochemical and indirect immunofluorescence stains (if any) cited in this report were determined by the Histopathology Laboratory of [facility]. Some of these tests were developed by our own laboratory and have not been cleared or approved by the US Food and Drug Administration. The FDA does not require this test to go through premarket FDA review. These tests are used for clinical purposes. They should not be regarded as investigational or for research. This laboratory is certified under the Clinical Laboratory Improvement Amendments (CLIA) as qualified to perform high complexity clinical laboratory testing. This case has been personally reviewed and interpreted by the attending (teaching) pathologist. 06/02/2021 9:55 AM [facility] Case Report Surgical Pathology Report Case: [id number] Authorizing Provider: Jennifer Macias MD Collected: 05/30/2021 11:14 AM Ordering Location: [facility] Pathology Lab Received: 06/01/2021 11:14 AM Pathologist: Aminata Gallo MD Specimen: Slide Consultation 06/02/2021 9:55 AM [facility] Embedded Images 06/02/2021 9:55 AM [facility] Pathology/Cytolo gy SURGICAL PATHOLOGY CONSULTATION AND REPORT ON REFERRED SLIDES PREPARED ELSEWHERE / Unknown 05/30/2021 11:14 AM DRIVER SALES 06/01/2021 11:14 AM DRIVER SALES Jennifer Macias MD LAB - PATHOLOGY/CYTO LOGY ORDERABLES [facility] [address] [phone] Care Teams Hat Finishing Materials Preparer Relationship Specialty Start Date End Date Jd Ramos MD [address] [place] [address] PCP - General 07/11/21
--- OUTSIDE RECORDS SUMMARY | 2024-06-11 11:56 | XMS_ITS | Encounter Summary ---
Author Organization [facility] Address [address] [place] [address] Care Team Providers Care Octave Board Racker Name Role Phone Jd Ramos MD Primary Care Provider [phone] Encounter Details Date Type Department Care Team (Late st Contact Info) Description 06/01/2021 Lab Requisition [facility] [address] [place] [address] Jennifer Macias MD [address] [place] [address] Illness, unspecified Social History Tobacco Use Types Packs/Day Years Used Date Smoking Tobacco: Never Assessed Sex and Gender Information Value Date Recorded Sex Assigned at Not on file Gender Identity Not on file Sexual Orientation Not on file documented as of this encounter Plan of Treatment Not on file documented as of this encounter Procedures Procedure Name Priority Date/Time Associated Diagnosis Comments PATH CONSULT ON REFERRED CASE Routine 05/30/2021 11:14 AM CONSULTING SENIOR PRACTICE DIRECTOR Illness, unspecified documented in this encounter Results * PATH CONSULT ON REFERRED CASE (05/30/2021 11:14 AM CONSULTING SENIOR PRACTICE DIRECTOR) Final Diagnosis URINE, VOIDED, THIN PREP, CYTOLOGY (OSC: [id number]; 05/30/2021): - Atypical urothelial cells (AUS) 06/02/2021 9:55 AM CONSULTING SENIOR PRACTICE DIRECTOR [facility] Microscopic Description and Comment Performed. 06/02/2021 9:55 AM CONSULTING SENIOR PRACTICE DIRECTOR [facility] Clinical History HISTORY OF BLADDER CANCER 06/02/2021 9:55 AM [facility] PATH[facility] Materials Received Prepared slide received from [facility] [place] [facility] [id number]. All material will be returned. 06/02/2021 9:55 AM [facility] Disclaimer The performance characteristics of all immunohistochemical and indirect immunofluorescence stains (if any) cited in this report were determined by the Histopathology Laboratory of [facility]. Some of these tests were [...] the attending (teaching) pathologist. 06/02/2021 9:55 AM [facility] Case Report Surgical Pathology Report Case: [id number] Authorizing Provider: Jennifer Macias MD Collected: 05/30/2021 11:14 AM Ordering Location: [facility] Pathology Lab Received: 06/01/2021 11:14 AM Pathologist: Aminata Gallo MD Specimen: Slide Consultation 06/02/2021 9:55 AM [facility] Embedded Images 06/02/2021 9:55 AM [facility] Pathology/Cytolo gy SURGICAL PATHOLOGY CONSULTATION AND REPORT ON REFERRED SLIDES PREPARED ELSEWHERE / Unknown 05/30/2021 11:14 AM CONSULTING SENIOR PRACTICE DIRECTOR 06/01/2021 11:14 AM CONSULTING SENIOR PRACTICE DIRECTOR Jennifer Macias MD LAB - PATHOLOGY/CYTO LOGY ORDERABLES Performing Organization Address City/State/[facility] Co de Phone Number [facility] [address] [phone] documented in this encounter Visit Diagnoses Diagnosis Illness, unspecified documented in this encounter Care Teams Octave Board Racker Relationship Specialty Start Date End Date Jd Ramos MD [address] [place], [place] [id number] PCP - General 07/11/21 documented as of this encounter
--- OUTSIDE RECORDS SUMMARY | 2024-06-11 11:56 | XMS_ITS | Clinical Summary ---
Author Organization [facility] Address [address] [facility] [address] [facility] [place] [address] Care Team Providers Care Security Software Engineer Name Role Phone Jd Ramos MD Primary Care Provider [phone] Social History Tobacco Use Types Packs/Day Years Used Date Smoking Tobacco: Never Assessed Comments Unknown Sex and Gender Information Value Date Recorded Sex Assigned at Not on file Legal Sex Female 7:09 PM CDT Gender Identity Not on file Sexual Orientation Not on file Plan of Treatment Health Maintenance Due Date Last Done Comments Cervical Cancer Screening Pa p Smear (Age 30 to 64) Every 3 Years 1962 Colorectal Cancer Screening Colonoscopy (10 Years) 1962 Annual Physical 1965 Hepatitis C 1980 Cervical Cancer Screening Pa p with HPV Testing (Age 30 to 64) Every 5 Years 1992 Cervical Cancer Screening wi th HPV 1992 Mammogram Screening 2002 Zoster Vaccines (1 of 2) 2012 DTaP, Tdap and Td Vaccines ( 2 - Td or Tdap) 09/11/2022 09/11/2012 COVID-19 Vaccine (2023-2 5 season) 2023 02/25/2021, 07/08/2020 Influenza Adult (#1) 2024 RSV Immunization or 60+ Years (1 - 1-dose 75+ series) 2037 Meningococcal B Vaccine Aged Out No l onger eligible based on patient's age to complete this topic Meningococcal Vaccine Aged Out No cj jono eligible based on patient's age to complete this topic Pneumococcal Vaccine: Pediatrics (0 to 5 Years) and At-Risk Patients (6 to 64 Years) Aged Out No longer eligible b ased on patient's age to complete this topic RSV Immunizations Under 20 Months Aged Out No longer eligible b ased on patient's age to complete this topic Insurance [facility] Care Teams Security Software Engineer Relationship Specialty Start Date End Date Jd Ramos MD [address] [place] [address] PCP - General INTERNAL MEDICINE 01/11/24
--- OUTSIDE RECORDS SUMMARY | 2024-06-11 11:56 | XMS_ITS | Encounter Summary ---
Author Organization [facility] Address [address] [place] [address] Care Team Providers Care Medical Health Researcher Name Role Phone Jd Ramos MD Primary Care Provider [phone] Encounter Details Date Type Department Care Team (Late st Contact Info) Description 02/18/2020 Lab Requisition [facility] [address] [place] [address] Jennifer Macias MD [address] [place] [address] Illness, unspecified Social History Tobacco Use Types [...] Comments PATH CONSULT ON REFERRED CASE Routine 02/18/2020 10:30 AM CDT Illness, unspecified documented in this encounter Results * PATH CONSULT ON REFERRED CASE (02/18/2020 10:30 AM CDT) Final Diagnosis URINE, VOIDED, THIN PREP, CYTOLOGY (OSC: [id number]; 02/18/2020): - Final diagnosis: Atypical urothelial cells (AUC). - Urine characteristics: Degenerative changes. - Adequacy: Satisfactory for evaluation. 02/19/2020 4:09 PM CDT [facility] Microscopic Description and Comment Microscopic examination substantiates the final diagnosis. 02/19/2020 4:09 PM CDT [facility] Clinical History History of bladder cancer 02/19/2020 4:09 PM CDT [facility] Materials Received Prepared slide received from [facility] [place] [facility] [id number]. All material will be returned. 02/19/2020 4:09 PM CDT [facility] Disclaimer The performance characteristics of all immunohistochemical and indirect immunofluorescence stains (if any) cited in this report were determined by the Histopathology Laboratory of [facility]. Some of these tests were developed by [...] and interpreted by the attending (teaching) pathologist. 02/19/2020 4:09 PM CDT [facility] Case Report Surgical Pathology Report Case: [id number] Authorizing Provider: Jennifer Macias MD Collected: 02/18/2020 10:30 AM Ordering Location: [facility] Pathology Lab Received: 02/18/2020 03:40 PM Pathologist: Dc Dowd MD Specimen: Slide Consultation 02/19/2020 4:09 PM CDT [facility] Embedded Images 02/19/2020 4:09 PM CDT [facility] Pathology/Cytolo gy SURGICAL PATHOLOGY CONSULTATION AND REPORT ON REFERRED SLIDES PREPARED ELSEWHERE / Unknown 02/18/2020 10:30 AM CDT 02/18/2020 3:40 PM CDT Jennifer Macias MD LAB - PATHOLOGY/CYTO LOGY ORDERABLES [facility] [address] [place], [place] [id number] [place] [address] documented in this encounter Visit Diagnoses Diagnosis Illness, unspecified documented in this encounter Care Teams Medical Health Researcher Relationship Specialty Start Date End Date Jd Ramos MD [address] [place], [place] [id number] PCP - General 07/11/21 documented as of this encounter
[2024-06-11 12:09] LABS: Basophils Absolute Auto 0.07 K/mm3 (0.00-0.10); Basophils Percent Auto 0.8 % (0.0-1.0); Eosinophils Absolute Auto 0.17 K/mm3 (0.02-0.50); Hematocrit 46.5 % (35.0-49.0); Hemoglobin 14.8 g/dL (12.0-15.0); Immature Granulocyte Absolute 0.06 K/mm3 (0.00-0.00); Immature Granulocyte Percent A 0.7 % (0.0-0.0); Lymphocytes Absolute Auto 1.84 K/mm3 (1.10-4.50); Lymphocytes Percent Auto 21.9 % (18.0-42.0); Mean Corpuscular HGB Conc 31.8 g/dL (32-36); Mean Corpuscular Hemoglobin 29.5 pg (27.0-31.0); Mean Corpuscular Volume 92.6 fL (78.0-102.0); Mean Platelet Volume 9.4 fl (9.2-11.8); Monocytes Absolute Auto 0.57 K/mm3 (0.10-0.90); Monocytes Percent Auto 6.8 % (2.0-11.0); Neutrophils Absolute Auto 5.68 K/mm3 (1.70-7.20); Neutrophils Percent Auto 67.8 % (50.0-70.0); Platelet Count Result 369 K/mm3 (150-420); Red Blood Count 5.02 M/mm3 (4.20-5.40); Red Cell Distribution Width 12.4 % (11.6-14.4); White Blood Count 8.4 K/mm3 (4.8-10.8)
[2024-06-11 12:31] LABS: Alanine Aminotransferase 27 U/L (14-59); Albumin Level 3.8 g/dL (3.4-5.0); Alkaline Phosphatase 155 U/L (46-116); Anion Gap 10 mmol/L (4-12); Aspartate Amino Transferase 18 U/L (15-37); Bilirubin,Total 0.4 mg/dL (0.00-1.00); Blood Urea Nitrogen 13 mg/dL (7-18); CRP 0.7 mg/dL (0.0-0.9); Calcium 9.8 mg/dL (8.5-10.1); Carbon Dioxide 28 mmol/L (21-32); Chloride 105 mmol/L (98-108); Estimated Glomerular Filt Rate > 60; Glucose 99 mg/dL (70-99); Osmolality Calculated 296 mOsm/kg (285-295); Potassium 4.7 mmol/L (3.5-5.1); Sodium 143 mmol/L (136-145); Total Protein 7.4 g/dL (6.4-8.2)
[2024-06-11 12:46] LABS: SARS-CoV-2 RNA PCR Negative (Negative)
[2024-06-11 12:50] LABS: Influenza A QL RT-PCR Negative (Negative); Influenza B QL RT-PCR Negative (Negative); RSV RNA, RT-PCR Negative (Negative)
== END 2024-06-11 11:52 | disposition home or self-care (01) ==
LOC: CHSLAB 11:54
PROVIDERS: PCP Internal Medicine; Visit Provider Internal Medicine
DX: J06.9 Acute upper respiratory infection, unspecified (principal); R42 Dizziness and giddiness; R51.9 Headache, unspecified
CPT/HCPCS: 36415; 80053; 85025; 86140; 87637

== ENCOUNTER 2024-09-25 08:32 | Outpatient (CLI) | payer BC, SELFPAY ==
--- NOTE | ~2024-09-25 | MM_ITS ---
EXAMINATION: MM screening velasquez BI w neymar HISTORY: Screening mammogram TECHNIQUE: Craniocaudal and mediolateral oblique 3-D tomosynthesis images were obtained and synthetic 2-D images were generated. CAD analysis was submitted and interpreted. COMPARISON: 08/14/2023 through 08/14/2017 BREAST PARENCHYMAL COMPOSITION: There are scattered areas of fibroglandular density. FINDINGS: There is no evidence of suspicious mass, calcification, or architectural distortion to sugg est malignancy in either breast. IMPRESSION: 1. No mammographic evidence of malignancy. 2. Recommend routine screening mammography in one year. BI-RADS Category 1: Negative Reviewed, dictated and finalized at location B.
--- OUTSIDE RECORDS SUMMARY | 2024-09-25 08:41 | XMS_ITS | Encounter Summary ---
Author Organization [facility] Address [address] [place] [address] Care Team Providers Care Debeaker Name Role Phone Jd Ramos MD Primary Care Provider [phone] Encounter Details Date Type Department Care Team (Late st Contact Info) Description 02/18/[address] [facility] [address] [place] [address] Jennifer Macias MD [address] [place] [address] Illness, unspecified Social History Tobacco Use Types Packs/Day Years Used Date Smoking Tobacco: Never Assessed Comments Unknown Sex and Gender Information Value Date Recorded Sex Assigned at Not on file Legal Sex Female 6:32 PM CDT Gender Identity Not on file [...] Diagnosis URINE, VOIDED, THIN PREP, CYTOLOGY (OSC: [id number]; 02/18/2020): - Final diagnosis: Atypical urothelial cells (AUC). - Urine characteristics: Degenerative changes. - Adequacy: Satisfactory for evaluation. 02/19/2020 4:09 PM CDT [facility] at 1609 CDT Microscopic Description and Comment Microscopic examination substantiates the final diagnosis. 02/19/2020 4:[address] [facility] Clinical History History of bladder cancer 02/19/2020 4:[address] [facility] Materials Received Prepared slide received from [facility] [place] [facility] [id number]. All material will be returned. 02/19/2020 4:[address] [facility] Disclaimer The performance characteristics of all immunohistochemical and indirect immunofluorescence stains (if any) cited in this report were determined by the Histopathology Laboratory of [facility]. Some of these tests were developed [...] attending (teaching) pathologist. 02/19/2020 4:[address] [facility] Case Report Surgical Pathology Report Case: [id number] Authorizing Provider: Jennifer Macias MD Collected: 02/18/2020 10:30 AM Ordering Location: [facility] Pathology Lab Received: 02/18/2020 03:40 PM Pathologist: Dc Dowd MD Specimen: Slide Consultation 02/19/2020 4:[address] [facility] Embedded Images 02/19/2020 4:[address] [facility] Pathology/Cytolo gy SURGICAL PATHOLOGY CONSULTATION AND REPORT ON REFERRED SLIDES PREPARED ELSEWHERE / Unknown 02/18/2020 10:30 AM CDT 02/18/2020 3:40 PM CDT us Jennifer Macias MD LAB - PATHOLOGY/CYTOLOGY ORDERAB LES Final Result [facility] [address] [place] [address], [facility] [phone] documented in this encounter Visit Diagnoses Diagnosis Illness, unspecified documented in this encounter Care Teams Debeaker Relationship Specialty Start Date End Date Jd Ramso MD [address] [place], [place] [id number] PCP - General 07/11/21 documented as of this encounter
--- OUTSIDE RECORDS SUMMARY | 2024-09-25 08:41 | XMS_ITS | Referral Summary ---
Author Organization [facility] Address [address] [place] [place] [address] Care Team Providers Care Auto Fleet Maintenance Manager Name Role Phone Jd Ramos MD Primary Care Provider [phone] Encounters Date Type Department Care Team Description 09/13/2024 11:45 AM CDT Office Visit [facility] at [address] [address] Sammi Carcamo NP Corneal irritation of left eye (Primary Dx) from Last 3 Months Allergies Active Allergy Reactions Criticality Noted Date Comments Other Other (See comments) 10/05/2016 Medications ofloxacin (OCUFLOX) 0.3 % ophthalmic solutionIndicat ions:Corneal irritation of left eye Administer 1 drop into the left eye 4 (four) times a day for 7 days 5 mL 09/21/19 25 Active Problems No known active problems Social History Tobacco Use Types Packs/Day Years Used Date Smoking Tobacco: Never Assessed Comments Unknown Sex and Gender Information Value Date Recorded Sex Assigned at Not on file Legal Sex Female 11:04 AM BUSINESS PLANNING MANAGER Gender Identity Not on file Sexual Orientation Not on file Last Filed Vital Signs Vital Sign Reading Time Taken Comments Blood Pressure 149/87 09/13/2024 11:25 AM CDT Pulse 86 09/13/2024 11:25 AM CDT Temperature 36.5 C (97.7 F) 09/13/2024 11:25 AM CDT Respiratory Rate 20 09/13/2024 11:25 AM CDT Oxygen Saturation 97% 09/13/2024 11:25 AM CDT Inhaled Oxygen Concentration - - Weight 73.5 kg (162 lb) 09/13/2024 11:25 AM CDT Height 160 cm (5' 3) 10/05/2016 11:27 AM CDT Body Mass Index 28.7 10/05/2016 11:27 AM CDT Plan of Treatment Not on file Insurance [employer] [place] Care Teams Auto Fleet Maintenance Manager Relationship Specialty Start Date End Date Jd Ramos MD PCP - General 10/05/16
--- OUTSIDE RECORDS SUMMARY | 2024-09-25 08:41 | XMS_ITS | Clinical Summary ---
Author Organization [facility] Address [address] [place] [address] Care Team Providers Care Book Sewing Machine Operator Name Role Phone Jd Ramos MD Primary Care Provider [phone] Allergies Active Allergy Reactions Criticality Noted Date Comments Other Other (See comments) 10/05/2016 Medications ofloxacin (OCUFLOX) 0.3 % ophthalmic solutionIndicat ions:Corneal irritation of left eye Administer 1 drop into the left eye 4 (four) times a day for 7 days 5 mL 5 09/21/19 25 Active Problems No known active problems Encounters Date Type Department Care Team Description 09/13/2024 11:45 AM CDT Office Visit [facility] at [address] [address] Sammi Carcamo NP Corneal irritation of left eye (Primary Dx) from Last 3 Months Surgical History Surgery Date Site/Laterality Comments [place] TOTAL ABDOMINAL HYSTERECT W/WO RMVL TUBE OVARY Hysterectomy - (Added by TW Conv) [place] NEPHRECTOMY W/PRTL URETER ECTOMY W/OPEN RIB RESCJ Nephrectomy Right - (Added by TW Conv) Family History Medical History Relation Name Comments Heart attack Father Family history of acute myocardial infarction - (Added by TW Conv) Hypertension Mother Family history of hypertension - (Added by TW Conv) Relation Name Status Comments Father Mother Social History Tobacco Use Types Packs/Day Years Used Date Smoking Tobacco: Never Assessed Comments Unknown Sex and Gender Information Value Date Recorded Sex Assigned at Not on file Legal Sex Female 11:04 AM ENROLLMENT MANAGEMENT DIRECTOR Gender Identity Not on file Sexual Orientation Not on file Obstetrics History Last Filed Vital Signs Vital Sign Reading [...] 10/05/2016 11:27 AM CDT Plan of Treatment Health Maintenance Due Date Last Done Comments Breast Cancer Screening-Mammogram 1962 Cervical Cancer Screening 1962 Colon Cancer Screening-Colonoscopy 1962 Depression Screening 1962 Hepatitis C Screening 1962 Hepatitis B Screening 1980 Regular Well Visit/Exam 18-64 1980 Zoster Vaccine (1 of 2) 2012 DTaP/Tdap/Td Vaccine (2 - Td or Tdap) 09/11/2022 09/11/2012 Covid-19 Vaccine (3 - 2023-2 5 season) 2023 02/25/2021, 07/08/2020 Influenza Vaccine (Season Ended) 2024 Pneumococcal vaccine <65 Aged Out No longer eligible based on patient's age to complete this topic Insurance CHOICE [facility] PPO [place] Care Teams Book Sewing Machine Operator Relationship Specialty Start Date End Date Jd Ramos MD PCP - General 10/05/16
--- OUTSIDE RECORDS SUMMARY | 2024-09-25 08:41 | XMS_ITS | Encounter Summary ---
Author Organization [facility] Address [address] [place] [address] Care Team Providers Care Shipping Clerk Crating Name Role Phone Jd Ramos MD Primary Care Provider [phone] Encounter Details Date Type Department Care Team (Late st Contact Info) Description 06/01/2021 Lab Requisition [facility] [address] [place] [address] Jennifer Macias MD [address] [place] [address] Illness, unspecified Social History Tobacco Use Types [...] ON REFERRED CASE Routine 05/30/2021 11:14 AM EQUITY ANALYST Illness, unspecified documented in this encounter Results * PATH CONSULT ON REFERRED CASE (05/30/2021 11:14 AM EQUITY ANALYST) Final Diagnosis URINE, VOIDED, THIN PREP, CYTOLOGY (OSC: [id number]; 05/30/2021): - Atypical urothelial cells (AUS) 06/02/2021 9:55 AM EQUITY ANALYST [facility] at [address] EQUITY ANALYST Microscopic Description and Comment Performed. 06/02/2021 9:55 AM [facility] Clinical History HISTORY OF BLADDER CANCER 06/02/2021 9:55 AM [facility] Materials Received Prepared slide received from [facility] [place] [facility] [id number]. All material will be returned. 06/02/2021 9:55 AM [facility] Disclaimer The performance characteristics of all immunohistochemical and indirect immunofluorescence stains (if any) cited in this report were determined by the Histopathology Laboratory of [facility]. Some of these tests were developed by [...] the attending (teaching) pathologist. 06/02/2021 9:55 AM [facility] Case Report Surgical Pathology Report Case: [id number] Authorizing Provider: Jennifer Macias MD Collected: 05/30/2021 11:14 AM Ordering Location: [facility] Lab Received: 06/01/2021 11:14 AM Pathologist: Aminata Gallo MD Specimen: Slide Consultation 06/02/2021 9:55 AM [facility] Embedded Images 06/02/2021 9:55 AM [facility] Pathology/Cytolo gy SURGICAL PATHOLOGY CONSULTATION AND REPORT ON REFERRED SLIDES PREPARED ELSEWHERE / Unknown 05/30/2021 11:14 AM EQUITY ANALYST 06/01/2021 11:14 AM EQUITY ANALYST us Jennifer Macias MD LAB - PATHOLOGY/CYTOLOGY ORDERAB LES Final Result [facility] [address] [place], [place] [id number] [place] [address] documented in this encounter Visit Diagnoses Diagnosis Illness, unspecified documented in this encounter Care Teams Shipping Clerk Crating Relationship Specialty Start Date End Date Jd Ramos MD [address] [place] [address] PCP - General 07/11/21 documented as of this encounter
--- OUTSIDE RECORDS SUMMARY | 2024-09-25 08:41 | XMS_ITS | Clinical Summary ---
Author Organization [facility] Address [address] [place] [address] Care Team Providers Care Fire Protection Fabricator Name Role Phone Jd Ramos MD Primary Care Provider [phone] Source Comments [facility],non-owned Affiliates and Associated Physician Practices is amultiple site organization consisting of ambulatory clinics and hospital sitesin [place], [place], [place] and [place]. This disclosure is being madepursuant to the Care Everywhere program and may not contain all information available regarding this patient. Last updated 18.[facility] [email or web address] Social History Tobacco Use Types Packs/Day Years [...] VACCINE (1 of 2) 2012 COVID-19 VACCINE (2023-2 5 season) 2023 DEPRESSION SCREENING 04/23/2024 INFLUENZA VACCINE (Season Ended) 2024 Respiratory Syncytial Virus (RSV) Vaccine Pt: or [...] to complete this topic MENINGOCOCCAL (Group B) VACC INE SHARED DECISION-MAKING Aged Out No longer eligibl e based on patient's age to complete this topic MENINGOCOCCAL GROUPS A/C/Y/W VACCINE Aged Out No longer eligible b ased on patient's age to complete this topic Insurance ANTH * Guarantor: LAVINIA MELGAR Account Type Relation to Patient Date of Phone Billing Address Personal/Family [address] [place] [address] SELF PAY NO INSURANCE Member Subscriber Plan / Payer (Ef fective for All Dates) Name:Lavinia Melgar Member ID:Not on file Relation to Subscriber:Not on file Name:LAVINIA MELGAR Subscriber ID:Not on file Address: [address] [place] [address] Payer ID:Not on file Group ID:Not on file Type:Self Pay Address: [place], [place] * Guarantor: LAVINIA MELGAR Account Type Relation to Patient Date of Phone Billing Address Personal/Family [address] [place], [place] SELF PAY NO INSURANCE Member Subscriber Plan / Payer (Ef fective for All Dates) Name:Lavinia Melgar Member ID:Not on file Relation to Subscriber:Not on file Name:LAVINIA MELGAR Subscriber ID:Not on file Address: [address] [place] [address] [place], [place] Payer ID:Not on file Group ID:Not on file Type:Self Pay Address: [place], [place] * Guarantor: LAVINIA MELGAR Account Type Relation to Patient Date of Phone Billing Address Personal/Family [address] [place], [place] SELF PAY NO INSURANCE Member Subscriber Plan / Payer (Ef fective for All Dates) Name:Lavinia Melgar Member ID:Not on file Relation to Subscriber:Not on file Name:ALVINIA MELGAR Subscriber ID:Not on file Address: [address] [place] [address] Payer ID:Not on file Group ID:Not on file Type:Self Pay Address: [place], [place] Care Teams Fire Protection Fabricator Relationship Specialty Start Date End Date Jd Ramos MD [address] [place] [address] PCP - General 07/11/21
[2024-09-25 09:20] LABS: Alanine Aminotransferase 22 U/L (6-35); Alkaline Phosphatase 118 U/L (38-126); Anion Gap 5 mmol/L (4-12); Aspartate Amino Transferase 29 U/L (14-36); Bilirubin,Total 0.5 mg/dL (0.2-1.3); Blood Urea Nitrogen 21 mg/dL (7-17); Calcium 9.1 mg/dL (8.4-10.2); Carbon Dioxide 24 mmol/L (22-30); Chloride 110 mmol/L (98-107); Estimated Glomerular Filt Rate > 60; Glucose 89 mg/dL (65-110); Osmolality Calculated 290 mOsm/kg (285-295); Potassium 4.4 mmol/L (3.4-5.0); Sodium 139 mmol/L (137-145); Total Protein 6.9 g/dL (6.3-8.2)
[2024-09-25 10:16] LABS: GGT 18 U/L (12-43)
== END 2024-09-25 08:33 | disposition home or self-care (01) ==
LOC: CHSIMG 08:35
PROVIDERS: PCP Internal Medicine; Visit Provider Internal Medicine
DX: Z12.31 Encounter for screening mammogram for malignant neoplasm of breast (principal); R74.8 Abnormal levels of other serum enzymes
CPT/HCPCS: 36415; 77063; 77067; 80053; 82977; 84075; 84080

== ENCOUNTER 2024-12-08 13:43 | Outpatient (CLI) | payer BC, SELFPAY ==
--- NOTE | ~2024-12-08 | CT_ITS ---
CT Scan of the Chest without Contrast: Clinical Indication: Lung cancer screening, nicotine dependence Technique: Contiguous sections were acquired throughout the chest without intravenous contrast. Dose reduction technique was used on this scan by utilizing automated exposure control and iterative reconstruction technique. The dose-length product (DLP) was 68.81 mGy-cm. Findings: Thyroid gland appears enlarged. There is no evidence of any significant mediastinal, hilar or axillary lymphadenopathy. Coronary artery calcifications are present. There is no evidence of pleural or pericardial effusion. The lungs are clear. No pulmonary nodules or infiltrates are noted. Images through the upper abdomen reveal no abnormalities. Impression: Lung RADS 1: Negative. 12 month follow-up screening CT advised. Probable thyroid goiter. Reviewed, dictated and finalized at location . Impression: Lung RADS 1: Negative. 12 month follow-up screening CT advised. Probable thyroid goiter.
--- NOTE | ~2024-12-08 | DEXA_ITS ---
Bone Density Report Name: LAVINIA MELGAR Age: 64 Sex: Female Ethnicity: White Date of : 1960 Indication: postmenopausal; screening for osteoporosis; height loss; cancer; hysterectomy; Referring Provider: Jd Ramos Study: Bone densitometry was performed. Exam Date: December 08, 2024 Accession number: [id number] Bone Density: Region BMD T-score Z-score Classification AP Spine(L1-L4) 0.770 -2.5 -0.9 Osteoporosis Femoral Neck (Left) 0.587 -2.4 -1.0 Osteopenia Total Hip (Left) 0.674 -2.2 -1.1 Osteopenia Femoral Neck (Right) 0.653 -1.8 -0.4 Osteopenia Total Hip (Right) 0.720 -1.8 -0.7 Osteopenia Femoral Neck Mean 0.620 -2.1 -0.7 Osteopenia Total Hip Mean 0.697 -2.0 -0.9 Osteopenia World Health Organization criteria for BMD impression classify patients as: Normal (T-score at or above -1.0), Osteopenia (T-score between -1.0 and -2.5), or Osteoporosis (T-score at or below -2.5). 10-year Fracture Risk: FRAX not reported because: Some T-score for Spine Total or Hip Total or Femoral Neck at or below -2.5 Clinical Information Provided by Patient: Has the following medical conditions: Cancer, Hysterectomy Patient maximum height was 64.0 Menopause Age: 36 No regular weight bearing exercise Drinks caffeinated beverages Onset of menses at age 14 Number of children 1 Impression: The patient has osteoporosis, based on the Total Spine T-score. Discussion: INCREASED RISK OF FRACTURE. BONE DENSITY IS UNDESIRABLY LOW AT ONE OR MORE SKELETAL SITES, CONSISTENT WITH POSTMENOPAUSAL OSTEOPOROSIS. This patient's lowest T-score meets the World Health Organization's (WHO) criteria for osteoporosis at one or more sites (T-score -2.5 or below). In untreated patients, the risk of osteoporotic fracture increases approximately two-fold for each 1.0 SD decrease in T-score. Low bone density is not the only risk factor for fracture; also consider factors such as patient's age, frailty or poor health, risk of falling, risk of injury, previous osteoporotic fracture, family history of osteoporosis, cigarette smoking, low body weight, etc. Not everyone with low bone mineral density has osteoporosis; osteomalacia and other metabolic bone disorders should also be considered. Patients who have osteoporosis should be evaluated for specific diseases and conditions (secondary causes) that may cause or contribute to bone loss. The [place] [employer] Clinical Endocrinologists (AACE) and National Osteoporosis Foundation (NOF) recommend pharmacologic intervention for all postmenopausal women whose T-score is in this range. The patient should follow a healthful lifestyle (good nutrition with adequate calcium and vitamin D, and appropriate weight-bearing exercise). Follow-Up: Consider a repeat BMD and Vertebral Fracture Assessment (VFA) exam in 2 years or sooner if medically necessary, to reassess this patient's status. Reported by: ALIZE on 12/08/2024 2:26:00 PM. Reviewed, dictated and finalized at location A.
--- NOTE | ~2024-12-08 | US_ITS ---
EXAMINATION: US thyroid DATE: 12/08/2024 14:41 INDICATION: Goiter TECHNIQUE: Multiple ultrasound images of the thyroid were obtained. COMPARISON: None. FINDINGS: The right thyroid lobe measures 6.5 x 3.2 x 3.3 cm. The left thyroid lobe measures 6.9 x 3.1 x 2.3 cm. The thyroid isthmus measures up to 1.7 cm in thickness. There are couple solid isoechoic wider than tall nodules with smooth to ill-defined margins and without echogenic foci in the right thyroid lobe (TI- RADS 3, mildly suspicious , FNA if >=2.5 cm, annual followup is >=1.5 cm), the larger measuring 2.9 cm in maximal diameter with 2 additional smaller nodules measuring 1.5 cm each in maximal diameter. There is a 2.1 cm nodule with lobular margins and peripheral coarse shadowing calcifications in the right thyroid lobe. (TI-RADS 5, highly suspicious , FNA if >=1.0 cm, annual followup is >0.5 cm). IMPRESSION: 1. Enlarged thyroid with multiple right thyroid nodules. Recommend ultrasound- guided biopsy of the 2.1 cm TI RADS 5 right thyroid nodule and the largest 2.9 cm TI RADS 3 nodule. Reviewed, dictated and finalized at location A. IMPRESSION: 1. Enlarged thyroid with multiple right thyroid nodules. Recommend ultrasound-g uided biopsy of the 2.1 cm TI RADS 5 right thyroid nodule and the largest 2.9 c m TI RADS 3 nodule.
--- OUTSIDE RECORDS SUMMARY | 2024-12-08 14:57 | XMS_ITS | Encounter Summary ---
Author Organization [facility] Address [address] [place] [address] Care Team Providers Care Manager Gaming Name Role Phone Jd Ramos MD Primary Care Provider [phone] Encounter Details Date Type Department Care Team (Late st Contact Info) Description 06/01/2021 Lab Requisition [facility] [address] [place] [address] Jennifer Macias MD [address] [place] [address] Illness, unspecified Social History Tobacco Use Types [...] ON REFERRED CASE Routine 05/30/2021 11:14 AM SURGICAL RN Illness, unspecified documented in this encounter Results * PATH CONSULT ON REFERRED CASE (05/30/2021 11:14 AM SURGICAL RN) Final Diagnosis URINE, VOIDED, THIN PREP, CYTOLOGY (OSC: [id number]; 05/30/2021): - Atypical urothelial cells (AUS) 06/02/2021 9:55 AM SURGICAL RN [facility] at [address] SURGICAL RN Microscopic Description and Comment Performed. 06/02/2021 9:55 AM [facility] Clinical History HISTORY OF BLADDER CANCER 06/02/2021 9:55 AM [facility] Materials Received Prepared slide received from [facility] [place] [facility] [id number]. All material will be returned. 06/02/2021 9:55 AM [facility] Disclaimer The performance characteristics of all immunohistochemical and indirect immunofluorescence stains (if any) cited in this report were determined by the Histopathology Laboratory of [facility]. Some of these tests were developed by [...] the attending (teaching) pathologist. 06/02/2021 9:55 AM [facility] Case Report Surgical Pathology Report Case: [id number] Authorizing Provider: Jennifer Macias MD Collected: 05/30/2021 11:14 AM Ordering Location: [facility] Lab Received: 06/01/2021 11:14 AM Pathologist: Aminata Gallo MD Specimen: Slide Consultation 06/02/2021 9:55 AM [facility] Embedded Images 06/02/2021 9:55 AM [facility] Pathology/Cytolo gy SURGICAL PATHOLOGY CONSULTATION AND REPORT ON REFERRED SLIDES PREPARED ELSEWHERE / Unknown 05/30/2021 11:14 AM SURGICAL RN 06/01/2021 11:14 AM SURGICAL RN us Jennifer Macias MD LAB - PATHOLOGY/CYTOLOGY ORDERAB LES Final Result [facility] [address] [place], [place] [id number] [place] [address] documented in this encounter Visit Diagnoses Diagnosis Illness, unspecified documented in this encounter Care Teams Manager Gaming Relationship Specialty Start Date End Date Jd Ramos MD [address] [place] [address] PCP - General 07/11/21 documented as of this encounter
--- OUTSIDE RECORDS SUMMARY | 2024-12-08 14:57 | XMS_ITS | Clinical Summary ---
Author Organization [facility] Address [address] [place] [address] Care Team Providers Care Rest Room Attendant Name Role Phone Jd Ramos MD Primary Care Provider [phone] Source Comments [facility],non-owned Affiliates and Associated Physician Practices is amultiple site organization consisting of ambulatory clinics and hospital sitesin [place], [place], [place] and [place]. This disclosure is being madepursuant to the Care Everywhere program and may not contain all information available regarding this patient. Last updated 18.[facility] [employer] Social History Tobacco Use Types Packs/Day Years [...] SCREENING 1962 LIPID TESTING 1962 MAMMOGRAM 1962 HIV SCREENING 1977 HEPATITIS C SCREENING 04/10/1980 DTAP/TDAP/TD VACCINES (1 - Tdap) 1981 PAP SMEAR 1983 PNEUMOCOCCAL VACCINE 50+ (1 of 1 - PCV) 2012 ZOSTER VACCINE (1 of 2) 2012 COVID-19 VACCINE (2023-2 5 season) 2023 DEPRESSION SCREENING 04/23/2024 INFLUENZA VACCINE (#1) 2024 Respiratory Syncytial Virus (RSV) Vaccine Pt: [...] patient's age to complete this topic Insurance * Guarantor: LAVINIA MELGAR Account Type Relation to Patient Date of Phone Billing Address Personal/Family [address] [place] [address] SELF PAY NO INSURANCE Member Subscriber Plan / Payer (Ef fective for All Dates) Name:Laviina Melgar Member ID:Not on file Relation to Subscriber:Not on file Name:LAIVNIA MELGAR Subscriber ID:Not on file Address: [address] [place] [address] Payer ID:Not on file Group ID:Not on file Type:Self Pay Address: [place], [place] * Guarantor: LAVINIA MELGAR Account Type Relation to Patient Date of Phone Billing Address Personal/Family [address] [place], [place] SELF PAY NO INSURANCE Member Subscriber Plan / Payer (Ef fective for All Dates) Name:Lavinia Melgar Member ID:Not on file Relation to Subscriber:Not on file Name:LAVINIA MELGAR Subscriber ID:Not on file Address: [address] [place] [address] [place], [place] Payer ID:Not on file Group ID:Not on file Type:Self Pay Address: [facility] * Guarantor: LAVINIA MELGAR Account Type Relation to Patient Date of Phone Billing Address Personal/Family [address] [place], [place] SELF PAY NO INSURANCE Member Subscriber Plan / Payer (Ef fective for All Dates) Name:Lavinia Melgar Member ID:Not on file Relation to Subscriber:Not on file Name:LAVINIA MELGAR Subscriber ID:Not on file Address: [address] [place] [address] [place], [place] Payer ID:Not on file Group ID:Not on file Type:Self Pay Address: [place], [place] Care Teams Rest Room Attendant Relationship Specialty Start Date End Date Jd Ramos MD [address] [place] [address] PCP - General 07/11/21
--- OUTSIDE RECORDS SUMMARY | 2024-12-08 14:57 | XMS_ITS | Encounter Summary ---
Author Organization [facility] Address [address] [place] [address] Care Team Providers Care Clinical Lab Clerk Name Role Phone Jd Ramos MD Primary Care Provider [phone] Encounter Details Date Type Department Care Team (Late st Contact Info) Description 02/18/2020 Lab Requisition [facility] [address] [place] [address] Jennifer Macias MD [address] [place] [address] Illness, unspecified Social History Tobacco Use Types [...] Diagnosis URINE, VOIDED, THIN PREP, CYTOLOGY (OSC: [id number]; 02/18/2020): - Final diagnosis: Atypical urothelial cells (AUC). - Urine characteristics: Degenerative changes. - Adequacy: Satisfactory for evaluation. 02/19/2020 4:09 PM CDT [facility] at [address] CDT Microscopic Description and Comment Microscopic examination substantiates the final diagnosis. 02/19/2020 4:09 PM CDT [facility] Clinical History History of bladder cancer 02/19/2020 4:09 PM CDT [facility] Materials Received Prepared slide received from [facility] [place] [facility] [id number]. All material will be returned. 02/19/2020 4:09 PM CDT [facility] Disclaimer The performance characteristics of [...] attending (teaching) pathologist. 02/19/2020 4:09 PM CDT [facility] Case Report Surgical Pathology Report Case: [id number] Authorizing Provider: Jennifer Macias MD Collected: 02/18/2020 10:30 AM Ordering Location: [facility] Lab Received: 02/18/2020 03:40 PM Pathologist: Dc Dowd MD Specimen: Slide Consultation 02/19/2020 4:09 PM CDT [facility] Embedded Images 02/19/2020 4:09 PM CDT [facility] Pathology/Cytolo gy SURGICAL PATHOLOGY CONSULTATION AND REPORT ON REFERRED SLIDES PREPARED ELSEWHERE / Unknown 02/18/2020 10:30 AM CDT 02/18/2020 3:40 PM CDT us Jennifer Macias MD LAB - PATHOLOGY/CYTOLOGY ORDERAB LES Final Result [facility] [address] [place] [address], [facility] [phone] documented in this encounter Visit Diagnoses Diagnosis Illness, unspecified documented in this encounter Care Teams Clinical Lab Clerk Relationship Specialty Start Date End Date Jd Ramos MD [address] [place], [place] [id number] PCP - General 07/11/21 documented as of this encounter
--- OUTSIDE RECORDS SUMMARY | 2024-12-08 14:57 | XMS_ITS | Clinical Summary ---
Author Organization [facility] Address [address] [place] [address] Care Team Providers Care Charge Operator Name Role Phone Jd Ramos MD Primary Care Provider [phone] Allergies Active Allergy Reactions Criticality Noted Date Comments Other Other (See comments) 10/05/2016 Medications No known medications Active Problems No known active problems Encounters Date Type Department Care Team Description 09/13/2024 11:45 AM CDT Office Visit [facility] Care at [address] [address] Sammi Carcamo NP Corneal irritation of left eye (Primary Dx) from Last 3 Months Surgical History Surgery Date Site/Laterality Comments [place] TOTAL ABDOMINAL HYSTERECT W/WO RMVL TUBE OVARY Hysterectomy - (Added by Conv) [place] NEPHRECTOMY W/PRTL URETER ECTOMY W/OPEN RIB RESCJ Nephrectomy Right - (Added by Conv) Family History Medical History Relation Name Comments Heart attack Father Family history of acute myocardial infarction - (Added by TW Conv) Hypertension Mother Family history of hypertension - (Added by Conv) Relation Name Status Comments Father Mother Social History Tobacco Use Types Packs/Day Years Used Date Smoking Tobacco: Never Assessed Comments Unknown Sex and Gender Information Value Date Recorded Sex Assigned at Not on file Legal Sex Female 11:04 AM OLEOMARGARINE MAKER Gender Identity Not on file Sexual Orientation [...] 5 season) 2023 02/25/2021, 07/08/2020 Influenza Vaccine (#1) 2024 Pneumococcal vaccine <65 Aged Out No longer eligible based on patient's age to complete this topic Insurance [employer]ICE [employer] PPO [place] Care Teams Charge Operator Relationship Specialty Start Date End Date Jd Ramos MD PCP - General 10/05/16
--- OUTSIDE RECORDS SUMMARY | 2024-12-08 14:57 | XMS_ITS | Clinical Summary ---
Author Organization [facility] Address [facility] [place] [address] Care Team Providers Care Process Design Engineer Name Role Phone Jd Ramos MD Primary Care Provider [phone] Social History Tobacco Use Types Packs/Day Years [...] wi th HPV 1992 Mammogram Screening 2002 Pneumococcal Vaccine: 50+ Years (1 of 1 - PCV) 2012 Zoster Vaccines (1 of 2) 2012 DTaP, Tdap and Td Vaccines ( 2 - Td or Tdap) 09/11/2022 09/11/2012 COVID-19 Vaccine (3 - 2023-2 5 season) 2023 02/25/2021, 07/08/2020 RSV Immunization or 60+ Years (1 - [...] patient's age to complete this topic Insurance [facility] Care Teams Process Design Engineer Relationship Specialty Start Date End Date Jd Ramos MD [address] [place] [address] PCP - General INTERNAL MEDICINE 01/11/24
== END 2024-12-08 13:44 | disposition home or self-care (01) ==
PROVIDERS: PCP Internal Medicine; Visit Provider Internal Medicine
DX: Z12.2 Encounter for screening for malignant neoplasm of respiratory organs (principal); Z87.891 Personal history of nicotine dependence; Z78.0 Asymptomatic menopausal state; E04.9 Nontoxic goiter, unspecified; M81.0 Age-related osteoporosis without current pathological fracture; M85.89 Other specified disorders of bone density and structure, multiple sites; E04.2 Nontoxic multinodular goiter
CPT/HCPCS: 71271; 76536; 77080

== ENCOUNTER 2025-02-13 19:49 | Emergency (ER) | payer BC, SELFPAY ==
--- OUTSIDE RECORDS SUMMARY | 2025-02-13 19:51 | XMS_ITS | Encounter Summary ---
Author Organization [facility] Address [address] [place] [address] Care Team Providers Care Plant Mechanic Name Role Phone Jd Ramos MD Primary Care Provider Encounter Details Date Type Department Care Team (Late st Contact Info) Description 06/01/2021 Lab Requisition [facility] [address] [place] [address] Jennifer Macias MD [address] [place] [address] Illness, unspecified Social History Tobacco Use Types [...] ON REFERRED CASE Routine 05/30/2021 11:14 AM [employer]KE [employer] FINISHER HELPER Illness, unspecified documented in this encounter Results * PATH CONSULT ON REFERRED CASE (05/30/2021 11:14 AM [employer] FINISHER HELPER) Final Diagnosis URINE, VOIDED, THIN PREP, CYTOLOGY (OSC: [id number]; 05/30/2021): - Atypical urothelial cells (AUS) 06/02/2021 9:55 AM [employer]KE [employer] FINISHER HELPER [facility] at [address] [employer] Microscopic Description and Comment Performed. 06/02/2021 9:55 AM [facility] Clinical History HISTORY OF BLADDER CANCER 06/02/2021 9:55 AM [facility] Materials Received Prepared slide received from [facility] [place] [facility] [id number]. All material will be returned. 06/02/2021 9:55 AM [facility] Disclaimer The performance characteristics of all immunohistochemical and indirect immunofluorescence stains (if any) cited in this report were determined by the [facility] Laboratory of [facility]. Some of these tests were developed [...] the attending (teaching) pathologist. 06/02/2021 9:55 AM [facility] Case Report Surgical Pathology Report Case: [id number] Authorizing Provider: Jennifer Macias MD Collected: 05/30/2021 11:14 AM Ordering Location: [facility] Received: 06/01/2021 11:14 AM Pathologist: Aminata Gallo MD Specimen: Slide Consultation 06/02/2021 9:55 AM [facility] Embedded Images 06/02/2021 9:55 AM [facility] Pathology/Cytolo gy SURGICAL PATHOLOGY CONSULTATION AND REPORT ON REFERRED SLIDES PREPARED ELSEWHERE / Unknown 05/30/2021 11:14 AM [employer] FINISHER HELPER 06/01/2021 11:14 AM [employer] FINISHER HELPER us Jennifer Macias MD LAB - PATHOLOGY/CYTOLOGY ORDERAB LES Final Result [facility] [address] [place], [place] [id number] [place] [address] documented in this encounter Visit Diagnoses Diagnosis Illness, unspecified documented in this encounter Care Teams Plant Mechanic Relationship Specialty Start Date End Date Jd Ramos MD [address] [place] [address] PCP - General 07/11/21 documented as of this encounter
--- OUTSIDE RECORDS SUMMARY | 2025-02-13 19:51 | XMS_ITS | Clinical Summary ---
Author Organization [facility] Address [address] [place] [id number] Care Team Providers Care Fire Equipment Operator Name Role Phone Jd Ramos MD Primary Care Provider [phone] Social History Tobacco Use Types Packs/Day Years [...] Tdap) 09/11/2022 09/11/2012 COVID-19 Vaccine (3 - 2024-2 6 season) 2024 02/25/2021, 07/08/2020 Influenza Adult (#1) 2025 RSV Immunization or 60+ Years (1 - 1-dose 75+ series) 2037 Hepatitis A Vaccines Aged Out 11/29/2010, 06/01/2010 No longer eligible based on patient's age to complete this topic Meningococcal B Vaccine Aged Out No l onger eligible based on patient's age to complete this topic Meningococcal Vaccine Aged Out No cj jono eligible based on patient's age to complete this topic RSV Immunizations Under 20 Months Aged Out No longer eligible b ased on patient's age to complete this topic Insurance [facility] Care Teams Fire Equipment Operator Relationship Specialty Start Date End Date Jd Ramos MD [address] [place] [address] PCP - General INTERNAL MEDICINE 01/11/24
--- OUTSIDE RECORDS SUMMARY | 2025-02-13 19:51 | XMS_ITS | Clinical Summary ---
Author Organization [facility] Address [address] [place] [address] Care Team Providers Care Administrative Assistant Receptionist Name Role Phone Jd Ramos MD Primary Care Provider [phone] Source Comments [facility],non-owned Affiliates and Associated Physician Practices is amultiple site organization consisting of ambulatory clinics and hospital sitesin [place], [place], [place] and [place]. This disclosure is being madepursuant to the Care Everywhere program and may not contain all information available regarding this patient. Last updated 18.[facility] [employer] Social History Tobacco Use Types Packs/Day Years [...] 2012 ZOSTER VACCINE (1 of 2) 2012 DEPRESSION SCREENING 04/23/2024 COVID-19 VACCINE (2023-2 5 season) 2024 INFLUENZA VACCINE (#1) 2024 Respiratory Syncytial Virus [...] Patient Date of Phone Billing Address Personal/Family [address] [place] [address] SELF PAY NO INSURANCE Member Subscriber Plan / Payer (Ef fective for All Dates) Name:Lavinia Melgar Member ID:Not on file Relation to Subscriber:Not on file Name:LAVINIA MELGAR Subscriber ID:Not on file Address: [address] [place] [address] Payer ID:Not on file Group ID:Not on file Type:Self Pay Address: [place], [place] * Guarantor: LAVINIA MELGAR Account Type Relation to Patient Date of Phone Billing Address Personal/Family [address] [place], [place] SELF PAY NO INSURANCE Member Subscriber Plan / Payer (Ef fective for All Dates) Name:Lavinia Melgar Member ID:Not on file Relation to Subscriber:Not on file Name:LAVINIA MELGAR Subscriber ID:Not on file Address: [address] [place] [address] [place], [place] Payer ID:Not on file Group ID:Not on file Type:Self Pay Address: [facility] * Guarantor: LAVINIA MELGAR Account Type Relation to Patient Date of Phone Billing Address Personal/Family [address] [place], [place] SELF PAY NO INSURANCE Member Subscriber Plan / Payer (Ef fective for All Dates) Name:Lavinia Melgar Member ID:Not on file Relation to Subscriber:Not on file Name:LAVINIA MELGAR Subscriber ID:Not on file Address: [address] [place] [address] [place] Payer ID:Not on file Group ID:Not on file Type:Self Pay Address: [place], [place] Care Teams Administrative Assistant Receptionist Relationship Specialty Start Date End Date Jd Ramos MD [address] [place] [address] PCP - General 07/11/21
--- OUTSIDE RECORDS SUMMARY | 2025-02-13 19:52 | XMS_ITS | Encounter Summary ---
Author Organization [facility] Address [address] [place] [address] Care Team Providers Care Inventory Checker Name Role Phone Jd Ramos MD Primary Care Provider [phone] Reason for Visit * Reason Onset Date Comments Appointment/Schedules 02/13/2025 Encounter Details Date Type Department Care Team (Late st Contact Info) Description 02/13/[address] [address] Nasrin Mcgill MD [facility] [place] [address] Appointment/Schedules Social History Tobacco Use Types Packs/Day Years Used Date Smoking Tobacco: Never Personal Safety Answer Date Recorded Have you ever been in or are you currently in a harmful physical or emotional relationship or is someone making you feel afraid or unsafe? 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 If things change management analyst the weekend she will call to reschedule. documented in this encounter Plan of Treatment Not on file documented as of this encounter Visit Diagnoses Not on filedocumented in this encounter Care Teams Inventory Checker Relationship Specialty Start Date End Date Jd Ramos MD PCP - General 10/05/16 documented as of this encounter
--- OUTSIDE RECORDS SUMMARY | 2025-02-13 19:52 | XMS_ITS | Clinical Summary ---
Author Organization [facility] Address [address] [address] Care Team Providers Care Enamel Burner Name Role Phone Jd Ramos MD Primary Care Provider Allergies Active Allergy Reactions Criticality Noted Date Comments Cephalexin Hives Medium 01/22/2025 Other Other (See comments) 10/05/2016 Medications No known medications Active Problems Problem Noted Date Diagnosed Date Multinodular goiter 12/19/2024 Assessment & Plan (12/19/2024 3:34 PM CDT): Clinically patient is asymptomatic, denies any compression symptoms. Her thyroid ultrasound and TFTs were reviewed with her. Her labs were consistent with subclinical hyperthyroidism, since patient has multiple thyroid nodules, her abnormal TFTs could be secondary to toxic nodule. Will schedule her for thyroid uptake scan which will also guide with her FNA. According to her ultrasound patient has 2 nodules that need FNA, however will wait for thyroid uptake scan before scheduling FNA. Orders: NM Thyroid Imaging in Patients WITHOUT Hyperthyroidism Request; Future Subclinical hyperthyroidism 12/19/2024 Assessment & Plan (12/19/2024 3:34 PM CDT): Clinically patient is asymptomatic, for further evaluation will get anti TPO and TSI antibodies along with thyroid uptake scan. Further treatment will depend on her lab results Orders: Thyroid peroxidase antibody (TPO); Future Thyroid stimulating immunoglobulin; Future NM Thyroid Imaging in Patients WITHOUT Hyperthyroidism Request; Future Encounters Date Type Department Care Team Description 02/13/2025 Telephone [facility] [address] [phone] Nasrin Mcgill MD Appointment/Schedules 01/26/2025 Results Follow-Up [facility] [address] [phone] Danika Mims MA Cytology 01/22/2025 8:49 AM CDT - 01/22/2025 11:59 PM CDT Hospital Encounter [facility] [address] [place] [phone] Multinodular goiter Discharge Disposition: Discharge to home or self care 01/21/2025 Telephone [facility] [address] [place] [phone] Aquilino Vinson MD 01/12/2025 Results Follow-Up [facility] [address] [address] Danika Mims MA NM Thyroid Imaging with Uptakes 01/12/2025 Orders Only [facility] [address] [phone] Nasrin Mcgill MD Multinodular goiter (Primary Dx) 01/09/2025 2:04 PM CDT - 01/09/2025 11:59 PM CDT Hospital Encounter [facility] [address] [place] [phone] Discharge Disposition: Discharge to home or self care 01/09/2025 1:30 PM CDT - 01/09/2025 11:59 PM CDT Hospital Encounter [facility] [address] [place] [phone] Discharge Disposition: Discharge to home or self care 01/08/2025 1:30 PM CDT - 01/08/2025 11:59 PM CDT Hospital Encounter [facility] [address] [place] [phone] Multinodular goiter Discharge Disposition: Discharge to home or self care 01/05/2025 Results Follow-Up [facility] [address] [phone] Danika Mims MA Thyroid stimulating immunoglobulin, Thyroid peroxidase antibody (TPO) 01/01/2025 Orders Only [facility] [address] [phone] Nasrin Mcgill MD Multinodular goiter (Primary Dx) 12/29/2024 Telephone [facility] [address] [phone] Nasrin Mcgill MD Thyroid Uptake 12/19/2024 4:00 PM CDT Lab [address] [address] Subclinical hyperthyroidism 12/19/2024 3:00 PM CDT Office Visit [facility] [address] [address] Nasrin Mcgill MD Multinodular goiter (Primary Dx); Subclinical hyperthyroidism from Last 3 Months Surgical History Surgery Date Site/Laterality Comments [place] TOTAL ABDOMINAL HYSTERECT W/WO RMVL TUBE OVARY Hysterectomy - (Added by Conv) MO NEPHRECTOMY W/PRTL URETER ECTOMY W/OPEN RIB RESCJ Nephrectomy Right - (Added by Conv) Family History Medical History Relation Name Comments Heart attack Father Family history of acute myocardial infarction - (Added by Conv) Hypertension Mother Family history of hypertension - (Added by Conv) Relation Name Status Comments Father Mother Social History Tobacco Use Types Packs/Day Years Used Date Smoking Tobacco: Never Tobacco Cessation:Counseling Given: Not Answered Personal Safety Answer Date Recorded Have you ever been in or are you currently in a harmful physical or emotional relationship or is someone making you feel afraid or unsafe? 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 Gender Identity Not on file Sexual Orientation Not on file Obstetrics History Last Filed Vital Signs Vital Sign Reading Time Taken Comments Blood Pressure 130/82 01/22/2025 9:25 AM CDT Pulse 70 01/22/2025 9:25 AM CDT Temperature 36.7 C (98 F) 01/22/2025 9:25 AM CDT Respiratory Rate 16 01/22/2025 9:25 AM CDT Oxygen Saturation 99% 01/22/2025 9:25 AM CDT Inhaled Oxygen Concentration - - Weight 72.6 kg (160 lb) 01/22/2025 9:25 AM CDT Height 160 cm (5' 3) 01/22/2025 9:25 AM CDT Body Mass Index 28.34 01/22/2025 9:25 AM CDT Plan of Treatment Health Maintenance Due Date Last Done Comments Breast Cancer Screening-Mammogram 1960 Cervical Cancer Screening 1960 Colon Cancer Screening-Colonoscopy 1960 Depression Screening 1960 Hepatitis C Screening 1960 Hepatitis B Screening 1980 Regular Well Visit/Exam 18-64 1980 Zoster Vaccine (1 of 2) 2012 DTaP/Tdap/Td Vaccine (2 - Td or Tdap) 09/11/2022 09/11/2012 Covid-19 Vaccine (3 - 2024-2 6 season) 2024 02/25/2021, 07/08/2020 Influenza Vaccine (#1) 2024 Pneumococcal vaccine <65 Aged Out No longer eligible based on patient's age to complete this topic Procedures Procedure Name Priority Date/Time Associated Diagnosis Comments BIOPSY THYROID Schedule Routine, Read Routine (OP Routine) 01/22/2025 11:37 AM CDT Multinodular goiter PLATELET COUNT Routine 01/22/2025 9:23 AM CDT PROTIME-INR Routine 01/22/2025 9:23 AM CDT CYTOLOGY Routine 01/22/2025 12:00 AM CDT NM THYROID IMAGING WITH UPTAKE(S) Schedule Routine, Read Routine (OP Routine) 01/09/2025 3:20 PM CDT Multinodular goiter THYROID PEROXIDASE ANTIBODY Routine 12/19/2024 3:29 PM CDT Subclinical hyperthyroidism THYROID STIMULATING IMMUNOGLOBULIN Routine 12/19/2024 3:29 PM CDT Subclinical hyperthyroidism from Last 3 Months Results * IR Biopsy Thyroid (01/22/2025 11:37 AM CDT) Anatomical Region Laterality Modality Neck N/A X-Ray Angiograph y 01/22/2025 10:1 3 PM CDT Impressions 01/22/2025 10:13 PM CDT Successful thyroid lesion biopsies, as described above. Please refer to the pathology report for final interpretation. Electronically signed by: Aquilino Vinson M.D. Narrative 01/22/2025 10:13 PM CDT EXAMINATION: IR BIOPSY THYROID Date: 01/22/2025 10:00 AM History: 2 right-sided thyroid nodules for sampling Technique: The risks, benefits, and alternatives were discussed and informed consent was obtained. Prior to beginning the procedure, universal protocol was performed to confirm the patient's identity and the planned procedure. Maximum sterile barriers including cap, mask, hand hygiene, sterile gloves, sterile gown, large sterile drape, sterile gel, sterile ultrasound probe cover, and 2% chlorhexidine for cutaneous antisepsis were used. The patient was monitored throughout the entirety of the procedure by the special procedures nurse in addition to the physician performing the procedure. There was continuous monitoring of the heart rate, blood pressure, respiratory rate, oxygen saturation, and EKG. The skin over the right thyroid lobe was sterilely prepped, draped, and infiltrated with 1% lidocaine. Utilizing continuous real-time ultrasound guidance,, fine needle biopsies were obtained from each of the targeted thyroid nodule (s) for AFFIRMA testing. Imaging for needle placement was done and then recorded in the electronic medical record. Additionally a 22-gauge needle was advanced into the targeted thyroid nodule (s), and several specimens were obtained and placed into a sterile container per standard protocol . At the end of the procedure, manual pressure was held, hemostasis was achieved, and a sterile dressing was applied. The patient tolerated the procedure well and without complications. Findings: Appropriate needle positioning was documented and recorded as noted above. There was no postprocedure complication. Procedure Note Aquilino Vinson MD - 01/22/2025 EXAMINATION: IR BIOPSY THYROID Date: 01/22/2025 10:00 AM History: 2 right-sided thyroid nodules for sampling Technique: The risks, benefits, and alternatives were discussed and informed consent was obtained. Prior to beginning the procedure, universal protocol was performed to confirm the patient's identity and the planned procedure. Maximum sterile barriers including cap, mask, hand hygiene, sterile gloves, sterile gown, large sterile drape, sterile gel, sterile ultrasound probe cover, and 2% chlorhexidine for cutaneous antisepsis were used. The patient was monitored throughout the entirety of the procedure by the special procedures nurse in addition to the physician performing the procedure. There was continuous monitoring of the heart rate, blood pressure, respiratory rate, oxygen saturation, and EKG. The skin over the right thyroid lobe was sterilely prepped, draped, and infiltrated with 1% lidocaine. Utilizing continuous real-time ultrasound guidance,, fine needle biopsies were obtained from each of the targeted thyroid nodule (s) for AFFIRMA testing. Imaging for needle placement was done and then recorded in the electronic medical record. Additionally a 22-gauge needle was advanced into the targeted thyroid nodule (s), and several specimens were obtained and placed into a sterile container per standard protocol . At the end of the procedure, manual pressure was held, hemostasis was achieved, and a sterile dressing was applied. The patient tolerated the procedure well and without complications. Findings: Appropriate needle positioning was documented and recorded as noted above. There was no postprocedure complication. IMPRESSION: Successful thyroid lesion biopsies, as described above. Please refer to the pathology report for final interpretation. Electronically signed by: Aquilino Vinson M.D. Nasrin Mcgill MD [facility] IR PROCEDURES Final Result * Protime-INR (01/22/2025 9:23 AM CDT) PT 10.3 10.2 - 13.5 sec INR 0.91 0.90 - 1.20 [facility]F Comment: Interpretive data Oral anticoagulant therapeutic ranges: Venous thromboembolism prophylaxis or treatment: 2.0-3.0 CARDIOLOGY Standard range: 2.0-3.0 High-intensity range: 2.5-3.5 Refer to indication-specific guidelines for appropriate target ranges for prosthetic heart valve replacement. Current interpretive data was last revised on 2019. Blood 01/22/2025 9:23 AM CDT 01/22/2025 9:29 AM CDT Aquilino Vinson MD LAB BLOOD ORDERABLES Final Res ult Performing Organization Address [facility] Co de Phone Number [facility] SELF [address] [place] [address] * Platelet count (01/22/2025 9:23 AM CDT) Plt 329 150 - 400 K/cumm Blood 01/22/2025 9:23 AM CDT 01/22/2025 9:28 AM CDT Aquilino Vinson MD LAB BLOOD ORDERABLES Final Res ult Performing Organization Address [facility] de Phone Number [facility] SELF [address] Department [place] [address] * Cytology (01/22/2025 12:00 AM CDT) Thyroid Gland (Cytology) 01/22/2025 01/22/2025 3:18 PM CDT Narrative 01/23/2025 11:31 AM CDT EPIC results best viewed via link to PDF [facility] Department of Pathology [address] [place] [id number] Note to Patients: This report may contain a detailed description of human tissue sent by a health care provider to the laboratory for pathologic evaluation. The content of this report is essential for diagnosis and may provide important critical findings. This information may be unfamiliar to patients to review without a medical professional present. It is advised that the patient review this report in the presence of a health care provider who can answer questions and explain the details. Final Report with Addendum Patient Name: LAVINIA MELGAR Address: [address] [place] [id number] Gender: F : 1960 (Age: 64) Service: Location: [facility] # [id number] Patient Type: Ancillary Taken: 01/22/2025 Received: 01/22/2025 Accessioned: 01/22/2025 Reported: 01/23/2025 Physician(s): Holly Antonio MD Diagnosis: A. Thyroid, right upper lobe nodule, fine needle aspiration: - Rare groups of bland follicular cells and scattered inflammatory cells. - See microscopic description. B. Thyroid, right lower lobe nodule, fine needle aspiration: - Atypia of undetermined significance (Canal Point 3). - Pending Afirma. Abhi Trimble M.D. Report Electronically Reviewed and Signed Out By Abhi Trimble M.D. 01/23/2025 11:31:53SARAHI Ash([facility])Addenda: Addendum Addendum Comment Material was submitted to [email or web address] for Afirma thyroid molecular analysis on the Lower Right nodule fine-needle aspirate (Nodule B on the Afirma report) The report can be viewed in the patient s electronic medical record. If access to the EMR is not available, please call pathology for a hard copy of the report ([phone]). Abhi Trimble M.D.Report Electronically Reviewed and Signed Out By Abhi Trimble M.D. 02/05/2025 19:37:09 Specimen(s) Received: A: FNA, Thyroid, Right Upper Nodule B: FNA, Thyroid, Right Lower Nodule Clinical History: The patient is a 64 year old female with multinodular goiter. Gross Description: A: 1 container received with 50 cc lightpink Cytolyt solution. Entire specimen processed. 1 ThinPrep and 1 cell block made. Afirma vial received and stored. B: 1 container received with 70 cc pink Cytolyt solution. Entire specimen processed. 1 ThinPrep and 1 cell block made. Afirma vial received and stored. Microscopic Description: A. Sections show a paucicellular sample with a rare group of follicular cells present which are composed of fairly bland monotonous nuclei without significant cytologic atypia. There is some scattered background inflammatory cells present as well as rare histiocytes. The findings are favored to represent a benign nodule, however, given the lack of follicular cells present (less than 6 groups of 10 cells), by strict [place] criteria the specimen is considered inadequate (Canal Point 1). Would recommend radiographic correlation. B. Sections show scattered groups of follicular cells present. The majority of the follicular groups are composed of fairly round monotonous nuclei without significant cytologic atypia. There is a background of inflammation present. There is no papillary architecture or nuclear features of papillary thyroid carcinoma present. A few of the groups are composed of slightly larger follicular cells with mild nuclear overlap. Given these mild atypical findings, the lesion is best classified as atypia of undetermined significance. A sample will be sent for Afirma with the results reported in an addendum. The performance characteristics of some immunohistochemical stains, fluorescence in-situ hybridization tests and immunophenotyping by flow cytometry cited in this report (if any) were determined by the Surgical Pathology Department at [facility] as part of an ongoing quality assurance analyst program and in compliance with federally mandated regulations drawn from the Clinical Laboratory Improvement Act of 1988 (CLIA '88). Some of these tests rely on the use of analyte specific reagents and are subject to specific labeling requirements by the US Food and Drug Administration. Such diagnostic tests may only be performed in a facility that is certified by the Department of Health and Human Services as a high complexity laboratory under CLIA '88. The FDA has determined that such clearance or approval is not necessary. This test is used for clinical purposes. It should not be regarded as investigational or for research. Nevertheless, federal rules concerning the medical use of analyte specific reagents require that the following disclaimer be attached to the report: This test was developed and its performance characteristics determined by the Surgical Pathology Department [facility]. It has not been cleared or approved by the U. S. Food and Drug Administration. Unless otherwise noted all cytology processing, staining and screening is performed at [facility] ([address] [place] [address]). REPORT IMAGES AND SCANNED DOCUMENTS, IF INCLUDED, ONLY VIEWABLE IN PDF VERSION OF REPORT us Aquilino Vinson MD LAB CYTOLOGY ORDERABLES Final Result * NM Thyroid Imaging with Uptakes (01/09/2025 3:20 PM CDT) Anatomical Region Laterality Modality N/A Nuclear Medicine 01/09/2025 3:37 PM CDT Addenda Addendum by Aquilino Vinson MD on 01/13/2025 9:51 AM CDT Review 4 IR biopsy purposes Electronically signed by: Aquilino Vinson M.D. Impressions 01/09/2025 3:37 PM CDT Mild thyromegaly, with perhaps due to 2 cold nodules. Radioactive iodine uptake at 24 hours is 18.5% . Thyroid uptake, normal range is 7-32%. Electronically signed by: Aquilino Vinson M.D. Narrative 01/09/2025 3:37 PM CDT EXAMINATION: NM THYROID IMAGING WITH UPTAKE(S) DATE: 01/08/2025 1:30 PM HISTORY: Thyroid nodules TECHNIQUE: AP, COSTA RICAN and DUQUE planar imaging of the thyroid gland is obtained following the administration of 11.7 millicuries of technetium labeled pertechnetate. The 24 hour radioactive iodine uptake study was obtained utilizing 7.32 microcuries of I-131 by mouth. COMPARISON STUDY: None FINDINGS: There is an inhomogeneous distribution of activity in each thyroid lobe. There is asymmetry in thyroid lobe size with mild thyromegaly in which the right lobe is considerably larger in length and girth than the left. The left thyroid lobe is smaller . There appears to be a prominent central round focus of decreased activity centered in the right thyroid lobe and another smaller focus at the level of the isthmus.. No sign of ectopic thyroid activity. Total radioactive iodine uptake is measured at approximately 24 hours. Total radioactive iodine uptake is 18.5% Procedure Note Aquilino Vinson MD - 01/09/2025 EXAMINATION: NM THYROID IMAGING WITH UPTAKE(S) DATE: 01/08/2025 1:30 PM HISTORY: Thyroid nodules TECHNIQUE: AP, COSTA RICAN and DUQUE planar imaging of the thyroid gland is obtained following the administration of 11.7 millicuries of technetium labeled pertechnetate. The 24 hour radioactive iodine uptake study was obtained utilizing 7.32 microcuries of I-131 by mouth. COMPARISON STUDY: None FINDINGS: There is an inhomogeneous distribution of activity in each thyroid lobe. There is asymmetry in thyroid lobe size with mild thyromegaly in which the right lobe is considerably larger in length and girth than the left. The left thyroid lobe is smaller . There appears to be a prominent central round focus of decreased activity centered in the right thyroid lobe and another smaller focus at the level of the isthmus.. No sign of ectopic thyroid activity. Total radioactive iodine uptake is measured at approximately 24 hours. Total radioactive iodine uptake is 18.5% IMPRESSION: Mild thyromegaly, with perhaps due to 2 cold nodules. Radioactive iodine uptake at 24 hours is 18.5% . Thyroid uptake, normal range is 7-32%. Electronically signed by: Aquilino Vinson M.D. Result [facility] Nasrin Mcgill MD [facility] NM PROCEDURES Edited Result - Final * Thyroid peroxidase antibody (TPO) (12/19/2024 3:29 PM CDT) Anti Thyroid Peroxidase <30 <=34 IUnits/mL Comment: ATPO Interpretive Data Results may be up to 28% higher in patients receiving Itraconazole. Current interpretive data was last revised 2020. Testing performed by: [facility], [address] [place]., [address] Blood 12/19/2024 3:29 PM CDT 12/20/2024 3:42 PM CDT Result [facility] Nasrin Mcgill MD LAB BLOOD ORDERABLES Final Resul t Performing Organization Address City/[facility]/ZIP Co de Phone Number [facility] [address] Department [place] [address] * Thyroid stimulating immunoglobulin (12/19/2024 3:29 PM CDT) TSIG <1.0 <=1.3 [place] ref [facility] Comment: Test Performed by: [address] [address] Pickle Sorter: Ciara Ybarra Ph.D.; CLIA# [id number] Blood 12/19/2024 3:29 PM CDT 12/19/2024 7:11 PM CDT Nasrin Mcgill MD LAB [place]LOOD [place] [address] [place] [address] [place] [facility] from Last 3 Months [place] Care Teams Enamel Burner Relationship Specialty Start Date End Date Jd Ramos MD PCP - General 10/05/16
[2025-02-13 19:53] VITALS: BP 152/87; PULSE 78; RESP 18; TEMP 36.6; O2SAT 100
[2025-02-13 23:56] VITALS: BP 142/87; PULSE 74; RESP 20; TEMP 36.7; O2SAT 97
[2025-02-14] VITALS: BP 142/87; O2SAT 95
[2025-02-14 00:31] VITALS: BP 130/81; O2SAT 94
[2025-02-14 00:36] LABS: Alanine Aminotransferase 18 U/L (6-35); Albumin Level 4.1 g/dL (3.5-5.1); Alkaline Phosphatase 96 U/L (38-126); Anion Gap 10 mmol/L (4-12); Aspartate Amino Transferase 22 U/L (14-36); Bilirubin,Total 0.8 mg/dL (0.2-1.3); Blood Urea Nitrogen 15 mg/dL (7-17); Calcium 9.5 mg/dL (8.4-10.2); Carbon Dioxide 25 mmol/L (22-30); Chloride 99 mmol/L (98-107); Estimated CRCL calculation 56 ml/min; Estimated Glomerular Filt Rate > 60; Glucose 124 mg/dL (65-110); Potassium 3.9 mmol/L (3.4-5.0); Sodium 134 mmol/L (137-145); Total Protein 7.6 g/dL (6.3-8.2)
[2025-02-14 00:37] LABS: Add Urine Microscopic? YES; Appearance Urine Clear (Clear); Glucose Urine UA Negative (Negative); Leukocyte Esterase Ur 2+ LEU/UL (Negative); Need Manual Microscopic Reviewed; Nitrate Urine Negative (Negative); Non Pathogenic Casts 0-2; Specific Grav Ur 1.002 (1.001-1.035)
[2025-02-14 00:43] LABS: Hematocrit 41.9 % (37.0-47.0); Hemoglobin 13.9 g/dL (12.0-15.0); Immature Granulocyte Percent A 0.9 % (0-0.5); Lymphocytes Absolute Auto 1.61 K/mm3 (0.9-3.2); Mean Corpuscular HGB Conc 33.2 g/dl (32-36); Mean Corpuscular Hemoglobin 30.8 pg (26-34); Mean Corpuscular Volume 92.9 fl (80-100); Nucleated Red Blood Cells Absolute Auto 0.000 K/mm3 (0.0-0.012); Nucleated Red Blood Cells Perc 0.0 % (0.0-0.2); Platelet Count Result 336 k/mm3 (150-375); Red Blood Count 4.51 M/mm3 (4.2-5.4); White Blood Count 12.6 K/mm3 (4.5-10.0)
--- NOTE | 2025-02-14 01:34 | ED.ABDPAIN ---
HPI - Abdominal Pain General Chief Complaint: Abdominal Pain Stated Complaint: ab pain, surgery sunday Time Seen by Provider: 02/13/25 23:04 Source: patient Mode of arrival: ambulatory Limitations: no limitations History of Present Illness HPI narrative: Patient is a 64-year-old female, with past medical history of bladder cancer currently in a clinical trial, who presents the ED with report of lower abdominal pain. Patient sees Dr. Casanova for bladder cancer. She underwent biopsy of her bladder related to the clinical trial on Sunday with Dr. Casanova. Since then, she has been having intermittent lower abdominal pain. She saw Dr. Casanova in clinic today and he reportedly performed a CT scan to evaluate for perforation of the bladder. This was unremarkable. She had a West catheter placed in the clinic today and was started on Bactrim for possible UTI. Patient reports pain has been ongoing. She has not taken anything for the pain. Reports episode of nausea/vomiting today. She does feel as though she has been constipated this week since the procedure. Last bowel movement was a few days ago. She did pass a small amount of stool today. Has taken 1 dose of laxative suppository without improvement. Denies fevers. Denies hematuria. Catheter is draining appropriately. Related Data Home Medications ?Medication ?Instructions ?Recorded ?Confirmed ?Last Taken ?Type No Home Medications 12/24/23 12/24/23 Unknown History Allergies Allergy/AdvReac Type Severity Reaction Status Date / Time Cephalosporins Allergy Mild Rash Verified 02/13/25 23:55 Review of Systems Review of Systems: All systems reviewed & are unremarkable except as noted in HPI. All systems reviewed & are unremarkable except as noted in HPI and below PMFSH Past Medical History Medical History Bladder cancer Surgical History Surgical History History of hysterectomy History of nephrectomy History of appendectomy Hx of cystoscopy Social History Social History Smoking packs per day: 1 Smoking cigarettes per day: 20.0 Years smoked: 35 Smoking pack-years: 35.00 Smoking status: Former smoker Tobacco type: cigarettes Smoking end date: 11/01/11 Alcohol intake: current Drinks per week: 7 Substance use: never Substance use type: does not use Living arrangements: with family Gender identity (if verbalized by the patient): Female Sexual Orientation (if Verbalized by the Patient): Straight or Heterosexual Spiritual care concerns: No Exam Narrative: GENERAL: Well appearing, well-nourished, non-toxic, in no acute distress. HEAD: Normocephalic, atraumatic. RESPIRATORY: Airway patent, respirations nonlabored. Clear to auscultation bilaterally, no rales, rhonchi, wheezing. CARDIOVASCULAR: Regular rate and rhythm without murmurs, rubs, or gallops. ABDOMINAL: Soft, mild tenderness to palpation throughout right lower abdomen/suprapubic region, nondistended. Normoactive BS. MUSCULOSKELETAL: Moves all extremities. No gross deformities. SKIN: Warm, dry, normal color. NEURO: A&O X3. Speech clear. Cranial nerves II-XII grossly intact. Steady gait. No ataxic movements. PSYCHIATRIC: Appropriate mood and affect. Normal interaction. Course Vital Signs Vital signs: Vital Signs Temperature 97.9 F 02/13/25 19:53 Pulse Rate 78 02/13/25 19:53 Respiratory Rate 18 02/13/25 19:53 Blood Pressure 152/87 H 02/13/25 19:53 Pulse Oximetry 100 02/13/25 19:53 Oxygen Delivery Room Air 02/13/25 19:53 Temperature 97.9 F 02/14/25 02:02 Pulse Rate 90 02/14/25 02:02 Respiratory Rate 20 02/14/25 02:02 Blood Pressure 131/88 02/14/25 02:02 Pulse Oximetry 100 02/14/25 02:02 Oxygen Delivery Room Air 02/13/25 23:56 MDM - Abdominal Pain MDM Narrative Medical decision making narrative: Patient presented to ED with lower abdominal pain, history of recent bladder biopsy, history of bladder cancer, currently in a clinical trial. Vital signs are stable upon arrival today. Patient is afebrile. Catheter draining clear yellow urine. No evidence of hematuria or clots. Cbc with blood cell count of 12.6. CMP unremarkable. Kidney function is stable, at baseline. UA with possible infection, 2+ leuk esterase, 11-20 WBC. This was sent for culture. Patient was started on Bactrim today by Urology. Agree with plan to continue this. Discussed obtaining repeat imaging as I am unable to view CT scan was performed in the clinic today. Patient was initially agreeable, however reported that she does not wish to have repeat imaging as she is unsure if insurance will cover this. Discussed obtaining KUB x-ray, however patient politely declined. She did not want anything for pain or nausea currently in the ED. Offered nausea medicine for home, however she declined. Discussed possibility of bladder spasms. I did discuss case with Dr. Landry, urology, no further recommendations at this time, was okay with prescribing oxybutynin if wanted for bladder spasms. Patient reports she does have medication at home for bladder spasm, but thought this may be causing her constipation. I did discuss additional constipation management. Advised patient have very close follow-up with urology for continued management. Discussed strict return precautions. She is in agreement with plan. Feels comfortable going home. Discharged in stable condition. Medical Records Attestation: I reviewed the patient's medical records. Lab Data Attestation: I reviewed the patient's lab results. 02/14/25 00:07 02/14/25 00:07 Labs: Lab Results 02/14/25 02/14/25 Range/Units 00:07 00:08 WBC 12.6 H (4.5-10.0) K/mm3 RBC 4.51 (4.2-5.4) M/mm3 Hgb 13.9 (12.0-15.0) g/dL Hct 41.9 (37.0-47.0) % MCV 92.9 (80-100) fl MCH 30.8 (26-34) pg MCHC 33.2 (32-36) g/dl RDW 11.8 (11.5-14.5) % Plt Count 336 (150-375) k/mm3 MPV 10.0 (7.4-10.4) fl Immature Gran % (Auto) 0.9 H (0-0.5) % Neut % (Auto) 79.8 H (45.5-73.1) % Lymph % (Auto) 12.8 L (18.3-44.2) % [place] % (Auto) 6.0 (2.6-8.5) % Eos % (Auto) 0.2 (0-4.4) % Baso % (Auto) 0.3 (0.2-1.2) % Lymph # (Auto) 1.61 (0.9-3.2) K/mm3 [place] # (Auto) 0.8 H (0.1-0.6) K/mm3 Eos # (Auto) 0.0 (0-0.3) K/mm3 Baso # (Auto) 0.0 (0.0-0.1) K/mm3 Abs Immat Gran (auto) 0.11 H (0.00-0.031) K/mm3 Absolute Neuts (auto) 10.1 H (1.3-6.7) K/mm3 Absolute Nucleated RBC 0.000 (0.0-0.012) K/mm3 Nucleated RBC % 0.0 (0.0-0.2) % Sodium 134 L (137-145) mmol/L Potassium 3.9 (3.4-5.0) mmol/L Chloride 99 (98-107) mmol/L Carbon Dioxide 25 (22-30) mmol/L Anion Gap 10 (4-12) mmol/L BUN 15 D (7-17) mg/dL Creatinine 0.87 (0.7-1.0) mg/dL Estim Creat Clear Calc 56 ml/min Estimated GFR > 60 (59 - ) Glucose 124 H (65-110) mg/dL Calcium 9.5 (8.4-10.2) mg/dL Total Bilirubin 0.8 (0.2-1.3) mg/dL AST 22 (14-36) U/L ALT 18 (6-35) U/L Alkaline Phosphatase 96 (38-126) U/L Total Protein 7.6 (6.3-8.2) g/dL Albumin 4.1 (3.5-5.1) g/dL Urine Color Yellow (Yellow) Urine Appearance Clear (Clear) Urine pH 7.0 (5.0-9.0) Ur Specific [place] 1.002 (1.001-1.035) Urine Protein Negative (Negative) mg/dL Urine Glucose (UA) Negative (Negative) mg/dL Urine Ketones Negative (Negative) mg/dL Ur Blood (Man) 1+ H (Negative) Urine Nitrate Negative (Negative) Urine Bilirubin Negative (Negative) Urine Urobilinogen 0.2 (<2.0) mg/dL Add Ur Microanalysis Reviewed Leukocyte Esterase Rfl 2+ H (Negative) W[place]/UL Urine RBC 0-2 (0-2) /hpf Urine WBC 11-20 H (0-3) /hpf Ur Squamous Epith Cells None seen (Few) /hpf Urine Bacteria None seen /hpf Urine Casts 0-2 Discharge Plan Discharge Clinical Impression: Intermittent lower abdominal pain Bladder cancer Qualifiers: Bladder location: unspecified site Qualified Code(s): C67.9 - Malignant neoplasm of bladder, unspecified Patient Disposition: Home Condition: Stable Instructions: Antibiotic Form, Constipation (ED), High Fiber Diet (ED), Abdominal Pain (ED) Additional Instructions: Continue antibiotics as prescribed for urinary tract infection. Continue Tylenol/ibuprofen as needed for pain. Follow-up closely with your urologist for further evaluation. Recommend MiraLax and/or Dulcolax up to twice daily over the next 1 week for constipation. If you develop diarrhea, you may decrease this to once per day or every other day. Stay very well hydrated. Recommend plenty of fluids. Recommend high-fiber diet. Return to the ED if you experience worsening or severe symptoms, severe constipation, severe pain, unable to keep down food or drink, persistent fevers, blood in catheter bag, or any other symptoms of concern. Patient Language: Sammarinese Prescriptions: No Action No Home Medications Follow-up/Referrals: Jd Ramos MD [Primary Care Provider, Internal Medicine] Chalo Casanova MD [Physician, Urology] Referral Note: UROLOGY Time of Disposition: 01:37
[2025-02-14 02:02] VITALS: BP 131/88; PULSE 90; RESP 20; TEMP 36.6; O2SAT 100
== END 2025-02-14 02:05 | disposition home or self-care (01) ==
PROVIDERS: Emergency Provider Physician Assistant; PCP Internal Medicine
DX: R10.30 Lower abdominal pain, unspecified (principal); C67.9 Malignant neoplasm of bladder, unspecified; Z87.891 Personal history of nicotine dependence; Z90.5 Acquired absence of kidney; Z90.710 Acquired absence of both cervix and uterus
CPT/HCPCS: 36415; 80053; 81001; 85025; 87086; 99283